=== PATIENT | female | born 1945 | race Caucasian/White ===

== ENCOUNTER 2018-12-04 15:49 | Observation (INO) | payer OTHER, SELFPAY ==
[2018-12-04] VITALS (12 sets, daily range): BP systolic 114–162; BP diastolic 63–92; PULSE 66–203; RESP 10–18; TEMP 36.2–36.8; O2SAT 97–100; BMI 23.8
--- NOTE | 2018-12-04 | DI.ECHO.S_ITS ---
[facility] +---------+ : : [address] : : : : [id number] : : : : Phone: [phone]+ Echocardiogram Report + + :Name: ERLIN RIVERA Study Date: 12/05/2018 Height: 64 in : :[facility] Exam Location: [facility] Weight: 140 lb : : Gender: Female BSA: 1.7 m2 : :: 1945 Age: 73 yrs BP: 142/78 mmHg: :Reason For Study: SVT : : Performed By: Bernardino Sanchez : :Referring: Monique GREEN E : + + Interpretation Summary The left ventricle is normal in size. Left ventricular systolic function is normal without focal wall motion abnormalities. The ejection fraction is estimated to be 60-65%. Diastolic parameters suggest a relaxation abnormality of the left ventricle, consistent with probable normal filling pressures. The right ventricle is normal in size and function. Pulmonary artery pressures cannot be estimated because of the lack of a measurable TR jet velocity. Both atria are normal in size. There is no significant valvular heart disease. The ascending aorta is mildly enlarged. Procedure: A two-dimensional transthoracic echocardiogram with color flow and Doppler was performed. The study quality was technically good. There is no prior echocardiogram noted for this patient. The patient was in normal sinus rhythm during the exam. Left Ventricle: The left ventricle is normal in size. There is normal left ventricular wall thickness. Left ventricular systolic function is normal without focal wall motion abnormalities. The ejection fraction is estimated to be 60-65%. Diastolic parameters suggest a relaxation abnormality of the left ventricle, consistent with probable normal filling pressures. Right Ventricle: The right ventricle is normal in size and function. Atria: Both atria are normal in size. The interatrial septum is intact with no evidence for an atrial septal defect. Mitral Valve: The mitral valve is normal in structure and function. There is trace mitral regurgitation. Aortic Valve: The aortic valve is trileaflet. The aortic valve opens well. No aortic regurgitation is present. Tricuspid Valve: The tricuspid valve is normal in structure and function. There is a trace or physiologic amount of tricuspid regurgitation. Pulmonary artery pressures cannot be estimated because of the lack of a measurable TR jet velocity. Pulmonic Valve: The pulmonic valve is not well seen, but is grossly normal. There is trace pulmonic regurgitation. There is no significant valvular heart disease. Great Vessels: The aortic root is normal size. The ascending aorta is mildly enlarged. The pulmonary artery is normal size. The IVC is of normal diameter and collapses greater than 50% with a sniff. This suggests a low right atrial pressure of 3 mm Hg. Pericardium/ Pleura There is no pericardial effusion. There is no pleural effusion. MMode/2D Measurements & Calculations LVIDd: 4.4 cm LVOT diam: 1.9 cm LVIDs: 2.4 cm Ao root diam: 3.1 cm FS: 44.7 % asc Aorta Diam: 3.6 cm EPSS: 0.26 cm IVSd: 0.90 cm LVPWd: 1.1 cm LV casatneda. diameter/BSA (cm/m^2): 2.6 LV sys. diameter/BSA (cm/m^2): 1.4 LA dimension: 3.6 cm RA long axis: 4.5 cm LA A2 area: 16.5 cm2 RA area: 12.9 cm2 LA A4 area: 17.4 cm2 RA vol: 31.5 ml LA length (vol): 4.7 cm RA : 18.7 ml/m2 LA vol: 51.9 ml IVC diam: 1.3 cm LA vol index: 30.9 ml/m2 Doppler Measurements & Calculations Ao V2 max: 127.1 cm/sec LVOT Max Fred: 94.7 cm/sec Ao V2 mean: 86.3 cm/sec LV V1 max P.6 mmHg Ao max P.5 mmHg LV V1 VTI: 21.9 cm Ao mean P.3 mmHg MELANIE(I,D): 2.5 cm2 Ao V2 VTI: 24.9 cm MELANIE(V,D): 2.1 cm2 sev ratio: 0.88 MELANIE indexed to BSA (cm^2/m^2): 1.5 MV E max fred: 53.8 cm/sec PA V2 max: 74.4 cm/sec MV A max fred: 64.8 cm/sec PA V2 mean: 53.3 cm/sec MV E/A: 0.83 PA mean P.2 mmHg Med Peak E' Fred: 7.2 cm/sec PA pr(Accel): 29.1 mmHg E/E' med: 7.4 Lat Peak E' Fred: 6.5 cm/sec E/E' lat: 8.3 E/e' average: 7.9 MV dec time: 0.23 sec SV(LVOT): 61.7 ml Reading Physician:02:56 PM
--- NOTE | 2018-12-04 16:01 | ED.GENADULT ---
HPI - General Adult General Chief complaint: Arrhythmia/Palpitations Stated complaint: FEEL LIKE GOING TO BLACK OUT Time Seen by Provider: 12/04/18 16:00 Source: patient and family Mode of arrival: ambulatory Limitations: no limitations History of Present Illness HPI narrative: Patient is a 73-year-old relatively healthy female here for evaluation of palpitations. Approximately 30 min prior to arrival here in the emergency department she was driving where she stated that she had a sudden head williamson and also feeling that she was going to black out. She did feel like she was having palpitations. No chest pain or shortness of breath. She states that this was a fairly sudden onset shortly before arrival here to the emergency department. She also states she has not been feeling well for the past couple days. Has not had anything like this before. No interventions for the symptoms prior to arrival. Related Data Home Medications Medication Instructions Recorded Confirmed acetaminophen 2 - 4 tab PO QDAYP PRN #0 10/10/16 diazepam [Valium] 1 tab PO Q6HP PRN #0 10/10/16 fluticasone [Flonase Allergy 1 spray INTRANASAL QDAY #0 10/10/16 Relief] gabapentin [Neurontin] 300 mg PO HS #0 10/10/16 hydrochlorothiazide 25 mg PO QDAY #0 10/10/16 12/04/18 omeprazole 20 mg PO QDAY #0 10/10/16 losartan 12/04/18 Previous Rx's Medication Instructions Recorded aspirin 81 mg PO BID #60 tab 10/18/16 ibuprofen 800 mg PO Q6HP PRN #60 tab 10/18/16 Allergies Allergy/AdvReac Type Severity Reaction Status Date / Time cefazolin [CEFAZOLIN] Allergy Intermediate HIVES Unverified 02/10/18 12:39 Review of Systems Constitutional Reports fatigue, Denies fever(s) and Denies headache(s) Eyes Denies blurry vision and Denies diplopia ENT Ears, Nose, Mouth, and Throat: Denies vertigo, Denies dizziness, Denies headache(s), Denies sinus pain and Denies sinus pressure Cardiovascular Denies chest pain, Denies syncope, Reports rapid heart rate, Reports palpitations and Reports dyspnea Respiratory Reports dyspnea and Denies wheezing Gastrointestinal Gastrointestinal: Denies abdominal pain, Reports nausea and Denies vomiting Genitourinary Denies dysuria Musculoskeletal Denies myalgias and Denies arthralgias Integumentary/Breasts Denies lesions and Denies rash Neurologic Denies vertigo, Denies dizziness, Denies syncope and Denies headache(s) Comments: Phelan like she was going to black out Psychiatric Reports anxiety Endocrine Reports fatigue, Denies flushing and Reports palpitations Hematologic/Lymphatic Comments: Not on anticoagulation Allergic/Immunologic Denies urticaria and Denies wheezing PFSH Medical History Gastroesophageal reflux disease (Acute) Hypertension (Acute) Surgical History No pertinent past surgical history (Acute) Social History marital status: lives independently: Yes Social History marital status: lives independently: Yes Exam Initial Vital Signs Initial Vital Signs: Vital Signs Temperature 97.6 F 12/04/18 16:00 Pulse Rate 203 H 12/04/18 16:00 Respiratory Rate 13 12/04/18 16:00 Blood Pressure 162/83 H 12/04/18 16:00 Pulse Oximetry 100 12/04/18 16:00 Const General: cooperative, well developed, well groomed and No acute distress Orientation: alert and awake HENMT Head: normal to inspection and normocephalic Eyes Pupils: PERRL Neck Lymphatic: No lymphadenopathy Chest Chest: normal inspection of the chest Resp Effort & Inspection: normal respiratory effort Auscultation: clear to auscultation bilaterally Cardio Rate: tachycardic Rhythm: regular rhythm Heart Sounds: no murmurs Pulses: radial pulses present GI Inspection: non-distended Palpation: No firm and No tender Skin Lesions: no lesions Rashes: no rashes Neuro General: alert and oriented x3 Cognition: normal cognition Speech: speech normal Gait: normal gait Extrem General: normal to inspection, capillary refill normal and No edema Psych Appearance: grossly normal and well kempt Course Orders Ordered: ED Orders 12/04/18 16:05 B Type Natriuretic Peptide Stat Complete Blood Count AUTO DIFF Stat Comprehensive Metabolic Panel Stat Lipase Stat Partial Thromboplastin Time Stat Prothrombin Time INR Stat Troponin I Stat 12/04/18 16:11 XR chest 1V Stat EKG-12 Lead Stat 12/04/18 16:40 Urine Microscopic Stat 12/04/18 18:30 Education, smoking cessation ONGOING 12/04/18 19:00 Troponin I Q6H 12/05/18 Complete Blood Count AUTO DIFF Routine Comprehensive Metabolic Panel Routine EKG-12 Lead Routine 12/05/18 01:00 Troponin I Q6H 12/05/18 07:00 Troponin I Q6H Acetaminophen (Tylenol) 650 mg PO Q6HR PRN PRN Reason: As Needed for Fever/Mild Pain Aspirin (Aspirin Ec) 81 mg PO DAILY [facility] Diazepam (Valium) 5 mg PO Q6H PRN PRN Reason: Anxiety Enoxaparin Sodium (Lovenox) 40 mg SUBCUT DAILY [facility] Fluticasone Propionate (Flonase) 1 spray NASAL DAILY [facility] Gabapentin (Neurontin) 300 mg PO BEDTIME [facility] Hydrochlorothiazide (Hydrochlorothiazide) 25 mg PO DAILY [facility] Ibuprofen (Advil) 800 mg PO Q6H PRN PRN Reason: Pain, Mild (1-3) Pantoprazole Sodium (Protonix) 20 mg PO 0600 [facility] Discontinued Medications Adenosine (Adenocard) 6 mg IV NOW ONE Stop: 12/04/18 16:06 Last Admin: 12/04/18 16:05 Dose: 6 mg Sodium Chloride (Normal Saline 0.9%) 1,000 mls @ 1,000 mls/hr IV BOLUS ONE Stop: 12/04/18 17:08 Last Infusion: 12/04/18 18:15 Dose: 0 mls/hr Admin: 12/04/18 16:20 Dose: 1,000 mls/hr Vital Signs - 8 hr 12/04/18 16:00 12/04/18 16:21 12/04/18 16:22 Temperature 97.6 F 98.2 F Pulse Rate 92 H 88 Respiratory Rate 18 Blood Pressure 162/83 H Blood Pressure [Right Arm] 162/83 H 156/72 H Pulse Oximetry 100 12/04/18 16:30 12/04/18 17:00 12/04/18 17:30 Temperature Pulse Rate 85 81 82 Respiratory Rate 14 10 L 13 Blood Pressure Blood Pressure [Right Arm] 150/71 H 123/68 124/63 Pulse Oximetry 100 97 100 12/04/18 18:00 12/04/18 18:38 Temperature Pulse Rate 89 85 Respiratory Rate 17 18 Blood Pressure 131/81 Blood Pressure [Right Arm] 132/78 Pulse Oximetry 100 100 Medical Decision Making Lab Data Lab results reviewed: Yes I reviewed the patient's lab results. Result diagrams: 12/04/18 16:05 12/04/18 16:05 Lab Results 12/04/18 12/04/18 12/04/18 Range/Units 16:05 16:05 16:05 WBC 5.4 (4.5-11.0) X10^3/uL RBC 4.33 (4.0-5.2) X10^6/uL Hgb 12.5 (12.0-16.0) g/dL Hct 38.1 (36-46) % MCV 88.0 (80-100) fL MCH 28.9 (26-34) PG MCHC 32.8 (30-36) % RDW 13.6 (11.6-14.8) % Plt Count 227 (150-400) X10^3/uL Neut % (Auto) 53.7 (50-75) % Lymph % (Auto) 32.8 (25-40) % [place] % (Auto) 9.8 (3-14) % Eos % (Auto) 1.8 L (2-4) % Baso % (Auto) 1.9 (0-2) % Neut # (Auto) 2900 (5768-7255) /uL Lymph # (Auto) 1800 (2284-7769) /uL [place] # (Auto) 500 (0-900) /uL Eos # (Auto) 100 (0-450) /uL Baso # (Auto) 100 (0-100) /uL PT 11.0 (10.1-12.7) SECONDS INR 1.0 (0.9-1.3) APTT 29 (26.4-36.2) SECONDS Sodium 136 L (137-145) mmol/L Potassium 3.0 L (3.4-5.1) mmol/L Chloride 98 (98-107) mmol/L Carbon Dioxide 27 (22-32) mmol/L BUN 18 H (7-17) mg/dL Creatinine 0.90 (0.52-1.04) mg/dL Estimated GFR > 60.0 (>60) mL/min BUN/Creatinine Ratio 20.0 (6-22) Glucose 130 H (80-110) mg/dL Calcium 9.3 (8.4-10.2) mg/dL Total Bilirubin 0.6 (0.2-1.3) mg/dL AST 33 (14-36) IU/L ALT 37 (9-52) IU/L Alkaline Phosphatase 73 (38-126) U/L Troponin I < 0.012 (0.01-0.034) ng/mL B-Natriuretic Peptide < 100 (<100) Total Protein 8.3 H (6.3-8.2) g/dL Albumin 4.8 (3.5-5.0) g/dL Globulin 3.5 (1.7-4.1) g/dL Albumin/Globulin Ratio 1.4 (1.0-2.8) Lipase 185 (23-300) U/L Urine RBC (0-5/HPF) Urine WBC (0-5/HPF) Ur Squamous Epith Cells Urine Bacteria (None) Ur Culture Indicated? 12/04/18 Range/Units 16:40 WBC (4.5-11.0) X10^3/uL RBC (4.0-5.2) X10^6/uL Hgb (12.0-16.0) g/dL Hct (36-46) % MCV (80-100) fL MCH (26-34) PG MCHC (30-36) % RDW (11.6-14.8) % Plt Count (150-400) X10^3/uL Neut % (Auto) (50-75) % Lymph % (Auto) (25-40) % [place] % (Auto) (3-14) % Eos % (Auto) (2-4) % Baso % (Auto) (0-2) % Neut # (Auto) (1234-0387) /uL Lymph # (Auto) (9935-2089) /uL [place] # (Auto) (0-900) /uL Eos # (Auto) (0-450) /uL Baso # (Auto) (0-100) /uL PT (10.1-12.7) SECONDS INR (0.9-1.3) APTT (26.4-36.2) SECONDS Sodium (137-145) mmol/L Potassium (3.4-5.1) mmol/L Chloride (98-107) mmol/L Carbon Dioxide (22-32) mmol/L BUN (7-17) mg/dL Creatinine (0.52-1.04) mg/dL Estimated GFR (>60) mL/min BUN/Creatinine Ratio (6-22) Glucose (80-110) mg/dL Calcium (8.4-10.2) mg/dL Total Bilirubin (0.2-1.3) mg/dL AST (14-36) IU/L ALT (9-52) IU/L Alkaline Phosphatase (38-126) U/L Troponin I (0.01-0.034) ng/mL B-Natriuretic Peptide (<100) Total Protein (6.3-8.2) g/dL Albumin (3.5-5.0) g/dL Globulin (1.7-4.1) g/dL Albumin/Globulin Ratio (1.0-2.8) Lipase (23-300) U/L Urine RBC 1-5/hpf (0-5/HPF) Urine WBC 5-10/hpf H (0-5/HPF) Ur Squamous Epith Cells 5-10 /hpf H Urine Bacteria None seen (None) Ur Culture Indicated? Cult not indicated Urine Dip Bedside Urine Glucose Negative Bedside Urine Bilirubin - Negative Bedside Urine Ketone - Negative Urine Specific [place] 1.015 Bedside Urine Occult Blood + Bedside Urine pH 6.5 Bedside Urine Protein - Negative Bedside Urine Urobilinogen - Negative Bedside Urine Nitrite - Negative Bedside Urine Leukocytes + 70 Esterase Point of care testing: Urine Dip Bedside Urine Glucose Negative Bedside Urine Bilirubin - Negative Bedside Urine Ketone - Negative Urine Specific [place] 1.015 Bedside Urine Occult Blood + Bedside Urine pH 6.5 Bedside Urine Protein - Negative Bedside Urine Urobilinogen - Negative Bedside Urine Nitrite - Negative Bedside Urine Leukocytes + 70 Esterase Imaging Data Chest x-ray: Radiologist's impression: [place] [address] XRay Report Signed Patient: Kishor Prince#: [id number] : 1945Acct:[id number] Age/Sex: 73 / FDate of Service: 12/04/18 Loc: ED Accession Number: [id number] Procedure: XR chest 1V Ordering Provider: Eugene Ballesteros D.O. PROCEDURE: XR CHEST 1V INDICATIONS: palpitations TECHNIQUE: One view of the chest was acquired. COMPARISON: None. FINDINGS: Surgical changes and devices: None. Lungs and pleura: Lungs are clear. No pleural effusions or pneumothorax. Mediastinum: Mediastinal contours appear normal. Heart size is normal. Bones and chest wall: No suspicious bony lesions. Overlying soft tissues appear unremarkable. IMPRESSION: No acute process. Dictated by: Kade Emery M.D. on 12/04/2018 at 17:02 Approved by: Kade Emery M.D. on 12/04/2018 at 17:02 ECG Data Attestation: I personally reviewed and interpreted this ECG as follows: Prior ECG tracings: not available for review Interpretation: EKG arrival Tachycardia Ventricular rate of 188 Normal QRS Normal QTC Nonspecific ST T wave changes EKG after adenosine Sinus rhythm Ventricular rate of 92 Normal axis Normal QRS Normal QTC No ST T wave changes MDM Narrative Medical decision making narrative: Patient arrived with supraventricular tachycardia with a heart rate greater than 200. Patient was not hypotensive. Was mentating without any problems. Symptoms. If started approximately 30 min prior to arrival. She was given 6 mg of adenosine which brought her heart rate down less than 100. She did report an improvement of many of her symptoms. Lab reports were unremarkable. Troponin was negative. Patient was fairly anxious about all of her symptoms which is understandable. I feel that given the new onset of this SVT that admission for continued cardiac monitoring and trending of her troponins and echocardiogram is warranted. I discussed the case with Dr. Cota who agreed to admit the patient. The patient and her agreed to admission as well. Critical Care Time Critical Care Time: Yes Total Critical Care Time: 35 Attestation: The high probability of a clinically significant, sudden or life threatening deterioration of the cardiovascular system(s) required my full and direct attention, intervention and personal management. The aggregate critical care time was 35 minutes. This time is in addition to time spent performing reported procedures but includes the following: [] Data Review and interpretation [] Patient assessment and monitoring of vital signs [] Documentation [] Medication orders and management Discharge Plan Departure Patient Disposition: Admitted As Inpatient Clinical Impression: Supraventricular tachycardia Discharge Date/Time: 12/04/18 18:50 Interventions: ED Discharge Assessment Last Done: 12/04/18 18:38 Admit Date/Time: 12/04/18 18:44 Admit Provider: Monique Cota
[2018-12-04] MEDS: ADENOSINE 6 MG/2 ML VIAL IV (16:05)
--- NOTE | 2018-12-04 16:11 | DI.RAD.S_ITS ---
PROCEDURE: XR CHEST 1V INDICATIONS: palpitations TECHNIQUE: One view of the chest was acquired. COMPARISON: None. FINDINGS: Surgical changes and devices: None. Lungs and pleura: Lungs are clear. No pleural effusions or pneumothorax. Mediastinum: Mediastinal contours appear normal. Heart size is normal. Bones and chest wall: No suspicious bony lesions. Overlying soft tissues appear unremarkable. IMPRESSION: No acute process. Dictated by: Kade Emery M.D. on 12/04/2018 at 17:02 Approved by: Kade Emery M.D. on 12/04/2018 at 17:02
[2018-12-04] MEDS: SODIUM CHLORIDE 0.9% 1,000 ML 1000 ML IV (16:20)
[2018-12-04 16:28] LABS: Add Manual Diff / Slide Review NO; Basophils Absolute Auto 100 /uL (0-100); Basophils Percent Auto 1.9 % (0-2); Eosinophils Absolute Auto 100 /uL (0-450); Eosinophils Percent Auto 1.8 % (2-4); Hematocrit 38.1 % (36-46); Hemoglobin 12.5 g/dL (12.0-16.0); Lymphocytes Absolute Auto 1800 /uL (1100-4500); Lymphocytes Percent Auto 32.8 % (25-40); Mean Corpuscular HGB Conc 32.8 % (30-36); Mean Corpuscular Hemoglobin 28.9 PG (26-34); Monocytes Absolute Auto 500 /uL (0-900); Monocytes Percent Auto 9.8 % (3-14); Neutrophils Absolute Auto 2900 /uL (1500-7000); Neutrophils Percent Auto 53.7 % (50-75); Platelet Count 227 X10^3/uL (150-400); Red Blood Cell Count 4.33 X10^6/uL (4.0-5.2); Red Cell Distribution Width 13.6 % (11.6-14.8); White Blood Cell Count 5.4 X10^3/uL (4.5-11.0)
--- NOTE | 2018-12-04 16:31 | PC.NURSE ---
adenosine 6mg IVP given for SVT, hr 213. pt converted to normal sinus rhythm. hr90's
[2018-12-04 16:38] LABS: PTT Partial Thromboplastin Tim 29 SECONDS (26.4-36.2)
[2018-12-04 16:39] LABS: Alanine Aminotransferase 37 IU/L (9-52); Albumin 4.8 g/dL (3.5-5.0); Albumin Globulin Ratio 1.4 (1.0-2.8); Alkaline Phosphatase 73 U/L (38-126); Aspartate Aminotransferase 33 IU/L (14-36); Bilirubin Total 0.6 mg/dL (0.2-1.3); Blood Urea Nitrogen 18 mg/dL (7-17); Calcium 9.3 mg/dL (8.4-10.2); Carbon Dioxide 27 mmol/L (22-32); Chloride 98 mmol/L (98-107); Estimated Glomerular Filt Rate > 60.0 mL/min (>60); Globulin 3.5 g/dL (1.7-4.1); Glucose 130 mg/dL (80-110); HEMOLYSIS < 15 (0-50); Lipase 185 U/L (23-300); Sodium 136 mmol/L (137-145); Total Protein 8.3 g/dL (6.3-8.2)
[2018-12-04 16:59] LABS: Troponin I < 0.012 ng/mL (0.01-0.034)
[2018-12-04 17:04] LABS: Bacteria Urine None Seen
[2018-12-04 17:21] LABS: Culture Indicated Urine Cult Not Indicated; RBC Urine 1-5/HPF (0-5/HPF); Squamous Epithelial Cell Urine 5-10 /HPF; WBC Urine 5-10/HPF (0-5/HPF)
[2018-12-04 17:24] LABS: B Type Natriuretic Peptide < 100 (<100)
--- NOTE | 2018-12-04 18:38 | PM.HP.1 ---
History of Present Illness Date Patient Seen: 12/04/18 Chief complaint: FEEL LIKE GOING TO BLACK OUT Narrative: Mrs. Prince is a 73 year old female with a history of recurrent sinusitis, asthma, bronchitis, arthritis, mixed connective tissue disease, GERD, HTN who had an episode of dizziness and light headedness while driving today. After trading drivers with her , she was seen in the ED and was shown to be in SVT on EKG. She was converted to sinus rhythm (HR90) after a failed attempt of valsalva maneuvers and successful 6 mg of adenosine. She notes that she has had short spells of dizziness, a few times per year, but has never felt palpatations and dizziness that lasted like this episode. She is very sensitive to oral medications and has had GI upset with zyrtex, numerous antibiotics, and narcotics. There was no hypotension during her ER evaluation. The troponin is less than 0.012. The chest x-ray is normal. She has had bronchitis since October 02 and is finally getting over it, but I am allergic to Gonzalez. She has had anxiety in the past related to laying down flat, which causes her sinusitis to become uncontrolled. She is anxious to be in hospitals, but would like to prevent future episodes. Patient History Medical History Asthma (Acute) Mixed connective tissue disease (Acute) Chronic arthritis (Acute) Chronic sinusitis (Acute) Hypertension (Acute) Gastroesophageal reflux disease (Acute) Surgical History No pertinent past surgical history (Acute) Social History marital status: household members: spouse lives independently: Yes Smoking Status: Never smoker Family & Social History Safety & Behavioral: No pertinent Family medical history to this admission Feels Safe in Current Yes Environment Been Physically Hurt or No Threatened By a Person Meds Home Medications Medication Instructions Recorded Confirmed Type acetaminophen 2 - 4 tab PO QDAYP PRN #0 10/10/16 12/04/18 History fluticasone [Flonase Allergy 1 spray INTRANASAL QDAY #0 10/10/16 12/04/18 History Relief] gabapentin [Neurontin] 300 mg PO HS #0 10/10/16 12/04/18 History hydrochlorothiazide 25 mg PO QDAY #0 10/10/16 12/04/18 History omeprazole 20 mg PO BID #0 10/10/16 12/04/18 History albuterol sulfate [ProAir HFA] 1 puff INHALATION Q4-6H PRN 12/04/18 12/04/18 History azelastine 2 spray INTRANASAL BID 12/04/18 12/04/18 History diclofenac sodium 2 g TOPICAL QID 12/04/18 12/04/18 History losartan 50 mg PO BEDTIME 12/04/18 12/04/18 History mecobalamin (vitamin B12) 500 mcg SUBLINGUAL DAILY 12/04/18 12/04/18 History Allergies Allergy/AdvReac Type Severity Reaction Status Date / Time cefazolin [CEFAZOLIN] Allergy Intermediate HIVES Unverified 02/10/18 12:39 Review of Systems Review of Systems Mrs. Prince states that she is generally healthy other than the chronic sinusitis, diffuse arthritis, mixed connective tissue dz, GERD, and HTN. Constitutional: She denies changes in weight, fever, chills, or muscle pain HENMT: sinus congestion after laying flat in the ED, post nasal drip associated cough, no lymph nodes, trouble swallowing, or changes in her voice Eyes: no changes in vision Heart: dizziness, palpatations, light headedness. No chest pain, shortness of breath. Resp: Admits to difficulty breathing through her nose due to congestion, Denies SOB, wheezing, trouble breathing. Extremities: Admits to arthritis with laying down for long periods of time. Denies edema. Endocrine: Denies intollerance to heat and cold. No changes in weight Neuro: Dizziness and light headedness, denies blurry vision, FROST Skin: denies rashes and bruises Hematologic: denies easy bleeding and lymphadenopathy. GI: Denies abdominal pain, diarrhea, constipation. Exam Vital Signs (past 8 hours): - 12/04/18 16:00 12/04/18 16:21 12/04/18 16:22 Temperature 97.6 F 98.2 F Pulse Rate 92 H 88 Respiratory Rate 18 Blood Pressure 162/83 H Blood Pressure [Right Arm] 162/83 H 156/72 H Pulse Oximetry 100 12/04/18 16:30 12/04/18 17:00 12/04/18 17:30 Temperature Pulse Rate 85 81 82 Respiratory Rate 14 10 L 13 Blood Pressure Blood Pressure [Right Arm] 150/71 H 123/68 124/63 Pulse Oximetry 100 97 100 12/04/18 18:00 Temperature Pulse Rate 89 Respiratory Rate 17 Blood Pressure Blood Pressure [Right Arm] 132/78 Pulse Oximetry 100 Oxygen Delivery Method Room Air Narrative Exam Narrative: She is laying in bed upright and speaks with a congested sounding voice. She is comfortable and cooperative. HENMT: Sinus congestion with Turbinate enlargement bilaterally. Patent nasal passage way. EYes: no sleral icteris, PERRL, EOMI, throat looks normal Neck: no lymphadenopathy, thyroid is midline and nonenlarged, JVD less than 6 cm, no carotid bruits heard cardio: RRR, normal S1, S2 without rubs, murmurs, clicks, or gallops resp: CTA B/L without wheezes, rales rhonchi, rubs extremities: no edema GI: Non distended, non tender, without hepatosplenomegaly Skin: no bruises or lesions noted Neuro exam. Cranial nerves 2-12 tested intact. Motor function 5/5 throughout. No increased reflexes. Gait and balance are not tested. Objective Labs Result Diagrams: 12/04/18 16:05 12/04/18 16:05 Labs: Laboratory Results - last 24 hr 12/04/18 12/04/18 12/04/18 16:05 16:05 16:05 WBC 5.4 RBC 4.33 Hgb 12.5 Hct 38.1 MCV 88.0 MCH 28.9 MCHC 32.8 RDW 13.6 Plt Count 227 Neut % (Auto) 53.7 Lymph % (Auto) 32.8 [place] % (Auto) 9.8 Eos % (Auto) 1.8 L Baso % (Auto) 1.9 Neut # (Auto) 2900 Lymph # (Auto) 1800 [place] # (Auto) 500 Eos # (Auto) 100 Baso # (Auto) 100 PT 11.0 INR 1.0 APTT 29 Sodium 136 L Potassium 3.0 L Chloride 98 Carbon Dioxide 27 BUN 18 H Creatinine 0.90 Estimated GFR > 60.0 BUN/Creatinine Ratio 20.0 Glucose 130 H Calcium 9.3 Total Bilirubin 0.6 AST 33 ALT 37 Alkaline Phosphatase 73 Troponin I < 0.012 B-Natriuretic Peptide < 100 Total Protein 8.3 H Albumin 4.8 Globulin 3.5 Albumin/Globulin Ratio 1.4 Lipase 185 Urine RBC Urine WBC Ur Squamous Epith Cells Urine Bacteria Ur Culture Indicated? 12/04/18 16:40 WBC RBC Hgb Hct MCV MCH MCHC RDW Plt Count Neut % (Auto) Lymph % (Auto) [place] % (Auto) Eos % (Auto) Baso % (Auto) Neut # (Auto) Lymph # (Auto) [place] # (Auto) Eos # (Auto) Baso # (Auto) PT INR APTT Sodium Potassium Chloride Carbon Dioxide BUN Creatinine Estimated GFR BUN/Creatinine Ratio Glucose Calcium Total Bilirubin AST ALT Alkaline Phosphatase Troponin I B-Natriuretic Peptide Total Protein Albumin Globulin Albumin/Globulin Ratio Lipase Urine RBC 1-5/hpf Urine WBC 5-10/hpf H Ur Squamous Epith Cells 5-10 /hpf H Urine Bacteria None seen Ur Culture Indicated? Cult not indicated Assessment & Plan Plan: Assessment/Plan Narrative: 1) SVT, POA, Acute, Stable - Confirmed on EKG in the ED and responded to Adenosine. - Trend troponins x3 - Echocardiogram ordered, pending results - Treadmill ordered, expected Thursday 2) Chronic Sinusitis POA, Chronic, active - continue home medications - Flonase - consider Afrin or a nasal decongestant for transient relief during future testing 3) Arthritis, POA, Chronic, Active - continue home Tylenol 4) Asthma, POA, Chronic, Stable - continue PRN Pro-Air home medication 5)Mixed Connective Tissue Disease, POA, Chronic, Stable - no treatment needed at this time, will follow up with her sales trainee after discharge 6)GERD, POA, Chronic, Stable - continue home Omeprazole to prevent GERD sx 7) HTN, POA, Chronic Stable - continue home medications losartan and hydrochlorothiazide.
[2018-12-04 20:02] LABS: Troponin I < 0.012 ng/mL (0.01-0.034)
[2018-12-04 20:20] LABS: Thyroid Stimulating Hormone 0.81 uIU/mL (0.47-4.68)
[2018-12-04] MEDS: GABAPENTIN 300 MG CAPSULE PO (20:24)
[2018-12-04] MEDS: ACETAMINOPHEN 325 MG TABLET 650 MG PO (21:33)
[2018-12-05] VITALS (12 sets, daily range): BP systolic 117–150; BP diastolic 74–78; PULSE 69–84; RESP 16–18; TEMP 36.3–36.7; O2SAT 91–99
[2018-12-05 01:27] LABS: Troponin I 0.018 ng/mL (0.01-0.034)
[2018-12-05] MEDS: ALBUTEROL HFA 60 PUFF/8 GM INH INH (02:00)
[2018-12-05] MEDS: POTASSIUM CHLORIDE 20 MEQ/15 ML UDC 40 MEQ PO ×2 (04:01)
[2018-12-05] MEDS: PANTOPRAZOLE 20 MG TABLET PO (06:33)
[2018-12-05 07:38] LABS: Add Manual Diff / Slide Review NO; Basophils Absolute Auto 0 /uL (0-100); Basophils Percent Auto 0.7 % (0-2); Eosinophils Absolute Auto 100 /uL (0-450); Hematocrit 32.3 % (36-46); Hemoglobin 10.6 g/dL (12.0-16.0); Lymphocytes Absolute Auto 1500 /uL (1100-4500); Lymphocytes Percent Auto 41.6 % (25-40); Mean Corpuscular HGB Conc 32.9 % (30-36); Mean Corpuscular Volume 88.4 fL (80-100); Monocytes Absolute Auto 400 /uL (0-900); Monocytes Percent Auto 10.1 % (3-14); Neutrophils Absolute Auto 1600 /uL (1500-7000); Neutrophils Percent Auto 44.6 % (50-75); Platelet Count 182 X10^3/uL (150-400); Red Blood Cell Count 3.65 X10^6/uL (4.0-5.2); Red Cell Distribution Width 13.9 % (11.6-14.8); White Blood Cell Count 3.7 X10^3/uL (4.5-11.0)
[2018-12-05 07:49] LABS: Alanine Aminotransferase 31 IU/L (9-52); Albumin 3.8 g/dL (3.5-5.0); Albumin Globulin Ratio 1.4 (1.0-2.8); Alkaline Phosphatase 57 U/L (38-126); Aspartate Aminotransferase 24 IU/L (14-36); BUN Creatinine Ratio 16.3 (6-22); Bilirubin Total 0.4 mg/dL (0.2-1.3); Blood Urea Nitrogen 13 mg/dL (7-17); Calcium 8.8 mg/dL (8.4-10.2); Carbon Dioxide 26 mmol/L (22-32); Chloride 105 mmol/L (98-107); Estimated Glomerular Filt Rate > 60.0 mL/min (>60); Globulin 2.7 g/dL (1.7-4.1); Glucose 95 mg/dL (80-110); HEMOLYSIS < 15 (0-50); Potassium 4.1 mmol/L (3.4-5.1); Sodium 139 mmol/L (137-145); Total Protein 6.5 g/dL (6.3-8.2)
[2018-12-05 08:00] LABS: Troponin I 0.012 ng/mL (0.01-0.034)
--- NOTE | 2018-12-05 08:50 | CM.DANOTE ---
DCP: Case received, EMR reviewed and met with patient. Introduced self and role. DCP template competed with information currently available. Patient is a 73 year old female who admitted yesterday afternoon to the care of the hospitalist team. PCP: PILI Arango, at [facility]. Payer: confirmed: [facility] [employer]. Patient came to hospital via family vehicle due to dizziness and heart palpitations. [place] she became [place]zy. Was able to pullboat engineer and have drive. He then drove her to hospital. Patient was noted to be in SVT. Met with her briefly. pleasant. Stated that her doctor had recommended that she see berry planter due to her EKG, but had not had time with other things going on. She had knee replacement here a couple of years ago. She stated, she also has autoimmune disease. She is independent at home. She is expecting to have an echo today. P: Home when medically stable. She will also be following up with berry planter. Catia Graham RN/Electrician Outside
[2018-12-05] MEDS: ENOXAPARIN 40 MG/0.4 ML SYRINGE SUBCUT (10:01)
[2018-12-05] MEDS: FLUTICASONE 120 SPRAY/16 GM SPRAY.SUSP NASAL (10:01)
[2018-12-05] MEDS: ASPIRIN EC 81 MG TABLET PO (10:02)
[2018-12-05] MEDS: hydroCHLOROthiazide 25 MG TABLET PO (10:02)
[2018-12-05] MEDS: SODIUM CHLORIDE 0.9% FLUSH 10 ML IV ×2 (10:02→20:17)
[2018-12-05] MEDS: ACETAMINOPHEN 325 MG TABLET 650 MG PO ×2 (11:22→21:45)
--- NOTE | 2018-12-05 16:04 | PC.NURSE ---
Addendum entered by Conchis Campos R.N. 12/05/18 22:28: Pt given night time meds around pts regular bedtime. pt cooperative. discussed NPO status with pt after midnight. PT states if she doesn't eat she does have a tendency to throw up. told pt to let staff know if she was feeling nauseated. PT verbalized understanding. will continue to monitor. Original Note: 1500- assumed care of pt. Pt bored and antsy as she states she usually is cleaning or fixing something for dinner or doing something at home to where she doesn't have anything to do here so she is just bored. Pt ambulates steady gait in room. Pt uses call light. waits for assistance. updated on plan of care and plans for the evening and into tomorrow for testing. Pt states she is bummed she cant be home. but at least theres a tv to watch. Pt pleasant and cooperative and appreciates staff. will continue to monitor.
[2018-12-05] MEDS: GABAPENTIN 300 MG CAPSULE PO (21:45)
--- NOTE | 2018-12-05 21:49 | PM.PN.1 ---
Subjective Date Patient Seen: 12/05/18 Interval history: Melvina Prince is a 73-year-old female with a past medical history significant for recurrent sinusitis, asthma, bronchitis, arthritis, mixed connective tissue disease, GERD, and hypertension who presented for acute episode of dizziness and lightheadedness while driving and found to be in SVT which was abated with adenosine. Overnight: Patient was stable and had no ectopy on telemetry. Patient is resting in bed comfortably. She denies any palpitations, lightheadedness or dizziness. She denies chest pain, shortness of breath, abdominal pain, nausea, vomiting, fever, chills, dysuria, diarrhea constipation. She is eager to go home. She reports restlessness and inability to sit still at baseline. She is voiding without difficulty. She is ambulating without assistance. Exam Vital Signs (past 8 hours): - 12/05/18 15:36 12/05/18 15:50 12/05/18 19:27 Temperature 98.1 F 97.9 F Pulse Rate 83 78 Respiratory Rate 16 18 Blood Pressure 128/74 119/76 Pulse Oximetry 96 96 98 12/05/18 20:14 Temperature Pulse Rate Respiratory Rate Blood Pressure 117/75 Pulse Oximetry Oxygen Delivery Method Room Air Narrative Exam Narrative: General: Older female sitting in bed and in no acute distress, well-developed, well-nourished, appropriately interactive. HEENT: Normocephalic, atraumatic. External ears without defect. Pupils equal, round, and reactive to light. Anicteric sclerae, moist conjunctivae, and no lid lag. Neck: Supple with full range of motion. No jugular venous distension. No bruits. No lymphadenopathy or thyromegaly. Cardiovascular: Regular rate and rhythm without murmurs, rubs, or gallops appreciated. Pulmonary: Clear to auscultation bilaterally without crackles, wheezes, or rhonchi. Normal respiratory effort with no use of accessory muscles. Abdomen: Soft, bowel sounds present, nontender, nondistended. No hepatosplenomegaly or masses appreciated. Extremities: No clubbing, cyanosis, or edema. Skin: Normal temperature, turgor, and texture; no rash, ulcers, or subcutaneous nodules appreciated. Neurological: Cranial nerves grossly intact. Normal muscle strength, tone, and bulk. Reflexes, coordination, and sensory function within normal limits. No known gait impairment. Psychiatric: Normal mood and affect. Alert and oriented to person, place, and time. Objective Labs Result Diagrams: 12/05/18 07:20 12/05/18 07:20 Labs: Laboratory Results - last 24 hr 12/05/18 12/05/18 12/05/18 00:59 07:20 07:20 WBC 3.7 L RBC 3.65 L Hgb 10.6 L Hct 32.3 L MCV 88.4 MCH 29.0 MCHC 32.9 RDW 13.9 Plt Count 182 Neut % (Auto) 44.6 L Lymph % (Auto) 41.6 H Branch % (Auto) 10.1 Eos % (Auto) 3.0 Baso % (Auto) 0.7 Neut # (Auto) 1600 Lymph # (Auto) 1500 Branch # (Auto) 400 Eos # (Auto) 100 Baso # (Auto) 0 Sodium Potassium Chloride Carbon Dioxide BUN Creatinine Estimated GFR BUN/Creatinine Ratio Glucose Calcium Total Bilirubin AST ALT Alkaline Phosphatase Troponin I 0.018 0.012 Total Protein Albumin Globulin Albumin/Globulin Ratio 12/05/18 07:20 WBC RBC Hgb Hct MCV MCH MCHC RDW Plt Count Neut % (Auto) Lymph % (Auto) Branch % (Auto) Eos % (Auto) Baso % (Auto) Neut # (Auto) Lymph # (Auto) Branch # (Auto) Eos # (Auto) Baso # (Auto) Sodium 139 Potassium 4.1 Chloride 105 Carbon Dioxide 26 BUN 13 Creatinine 0.80 Estimated GFR > 60.0 BUN/Creatinine Ratio 16.3 Glucose 95 Calcium 8.8 Total Bilirubin 0.4 AST 24 ALT 31 Alkaline Phosphatase 57 Troponin I Total Protein 6.5 Albumin 3.8 Globulin 2.7 Albumin/Globulin Ratio 1.4 Assessment & Plan Plan: Assessment/Plan Narrative: Melvina Prince is a 73-year-old female with a past medical history significant for recurrent sinusitis, asthma, bronchitis, arthritis, mixed connective tissue disease, GERD, and hypertension who presented for acute episode of dizziness and lightheadedness while driving and found to be in SVT which was abated with adenosine. 1. Acute SVT, present on admission. Resolved. -Confirmed on EKG in the ED and responded to Adenosine. -Trended serial troponins x3 which were within normal limits. -Echocardiogram ordered, pending. -Ordered exercise treadmill stress test for tomorrow morning. 2. Chronic Sinusitis , chronic, present on admission. Stable. -Continue home medications - Flonase. -Consider nasal decongestant for transient relief during future testing. 3. Arthritis, chronic, present on admission. Stable. -Continue home Tylenol. 4. Asthma, chronic, present on admission. Stable. -Continue PRN Pro-Air home medication 5. Mixed connective tissue disease, chronic, present on admission. Stable. -No treatment needed at this time, will follow up with her pattern generator operator after discharge. 6. GERD, chronic, present on admission. Stable. -Continue home Omeprazole. 7. Hypertension, chronic, present on admission. Stable. -Continue home medications losartan and hydrochlorothiazide. Disposition: Patient will likely discharge home tomorrow after stress test presuming normal with no evidence of ischemia.
[2018-12-05] MEDS: LOSARTAN 50 MG TABLET PO (23:40)
--- NOTE | 2018-12-05 23:51 | PC.NURSE ---
Addendum entered by Mary Fam R.N. 12/06/18 06:00: Slept at intervals. No pain at present time but concerned that she be allowed to take Tylenol prior to stress test; will clarify with MD since patient is NPO. BP still elevated at 151/73. Telemetry still SR. Original Note: Patient is alert and oriented. Breath sounds CTA with RA sat of 97%. HRR; on telemetry and has been in SR. Denies nausea. BT present and abdomen is soft. Denies dysuria, frequency or urgency. Independent with mobility and is steady on feet. Wearing bilateral SALUD stockings. BP elevated at 150/78 so requests Losartan which she had refused earlier due to a lower BP. Denies pain. Fall risk score is moderate but patient calls for assistance appropriately and is steady on feet; reminded to call for assistance if experiencing any pain, dizziness, weakness or disorientation.
[2018-12-06 05:20] VITALS: BP 151/73; PULSE 78; RESP 18; TEMP 36.5; O2SAT 98
[2018-12-06 05:55] LABS: Add Manual Diff / Slide Review NO; Basophils Absolute Auto 0 /uL (0-100); Basophils Percent Auto 0.9 % (0-2); Eosinophils Absolute Auto 200 /uL (0-450); Eosinophils Percent Auto 4.5 % (2-4); Hematocrit 33.9 % (36-46); Hemoglobin 11.3 g/dL (12.0-16.0); Lymphocytes Absolute Auto 1500 /uL (1100-4500); Lymphocytes Percent Auto 42.9 % (25-40); Mean Corpuscular HGB Conc 33.3 % (30-36); Mean Corpuscular Hemoglobin 29.3 PG (26-34); Mean Corpuscular Volume 88.1 fL (80-100); Monocytes Absolute Auto 400 /uL (0-900); Monocytes Percent Auto 10.6 % (3-14); Neutrophils Absolute Auto 1500 /uL (1500-7000); Neutrophils Percent Auto 41.1 % (50-75); Platelet Count 191 X10^3/uL (150-400); Red Blood Cell Count 3.84 X10^6/uL (4.0-5.2); Red Cell Distribution Width 13.9 % (11.6-14.8); White Blood Cell Count 3.6 X10^3/uL (4.5-11.0)
[2018-12-06] MEDS: PANTOPRAZOLE 20 MG TABLET PO (05:57)
[2018-12-06 06:00] LABS: BUN Creatinine Ratio 16.7 (6-22); Blood Urea Nitrogen 15 mg/dL (7-17); Calcium 9.2 mg/dL (8.4-10.2); Carbon Dioxide 30 mmol/L (22-32); Chloride 100 mmol/L (98-107); Estimated Glomerular Filt Rate > 60.0 mL/min (>60); Glucose 96 mg/dL (80-110); HEMOLYSIS < 15 (0-50); Magnesium 1.6 mg/dL (1.6-2.3); Potassium 3.7 mmol/L (3.4-5.1); Sodium 137 mmol/L (137-145)
--- NOTE | 2018-12-06 06:55 | PM.DS.1 ---
History of Present Illness Date Patient Seen: 12/04/18 Chief complaint: FEEL LIKE GOING TO BLACK OUT Narrative: Written by Dr. Cota: Mrs. Prince is a 73 year old female with a history of recurrent sinusitis, asthma, bronchitis, arthritis, mixed connective tissue disease, GERD, HTN who had an episode of dizziness and light headedness while driving today. After trading drivers with her , she was seen in the ED and was shown to be in SVT on EKG. She was converted to sinus rhythm (HR90) after a failed attempt of valsalva maneuvers and successful 6 mg of adenosine. She notes that she has had short spells of dizziness, a few times per year, but has never felt palpatations and dizziness that lasted like this episode. She is very sensitive to oral medications and has had GI upset with zyrtex, numerous antibiotics, and narcotics. There was no hypotension during her ER evaluation. The troponin is less than 0.012. The chest x-ray is normal. She has had bronchitis since October 02 and is finally getting over it, but I am allergic to Gonzalez. She has had anxiety in the past related to laying down flat, which causes her sinusitis to become uncontrolled. She is anxious to be in hospitals, but would like to prevent future episodes. Discharge Providers Date of admission: 12/04/18 18:44 Primary care physician: Rogelio Costello MD Discharge provider: Perla Bañuelos DO Discharge Date: 12/06/18 Summary Discharge Diagnosis: 1. Acute SVT, present on admission. Resolved. 2. Chronic sinusitis, present on admission. Stable. 3. Arthritis, chronic, present on admission. Stable. 4. Asthma, chronic, present on admission. Stable. 5. Mixed connective tissue disease, chronic, present on admission. Stable. 6. GERD, chronic, present on admission. Stable. 7. Hypertension, chronic, present on admission. Stable. Hospital Course: Melvina Prince is a 73-year-old female with a past medical history significant for recurrent sinusitis, asthma, bronchitis, arthritis, mixed connective tissue disease, GERD, and hypertension who presented for acute episode of dizziness and lightheadedness while driving and found to be in SVT which was abated with adenosine. 1. Acute SVT, present on admission. Resolved. -Confirmed on EKG in the ED and responded to Adenosine. -Trended serial troponins x3 which were within normal limits. -Echocardiogram demonstrated preserved systolic function with ejection fraction 60-65%, normal RV function, both atria are normal in size. No significant valvular heart disease. The ascending aorta is mildly enlarged. -Nuclear medicine stress test was normal and did not demonstrate any perfusion defect. Recommend cardiology referral outpatient for further workup and management of arrhythmia. -Started on metoprolol tartrate 25 mg twice daily for prevention of further arrhythmia as and increased blood pressure control, per Cardiology. Follow up closely with primary care physician. 2. Chronic sinusitis, present on admission. Stable. -Continued home medications - Flonase. -Consider nasal decongestant. 3. Arthritis, chronic, present on admission. Stable. -Continued home Tylenol. 4. Asthma, chronic, present on admission. Stable. -Continued albuterol inhaler as needed. 5. Mixed connective tissue disease, chronic, present on admission. Stable. -No treatment needed at this time, will follow up with her biological sciences instructor after discharge. 6. GERD, chronic, present on admission. Stable. -Continued home Omeprazole. 7. Hypertension, chronic, present on admission. Stable. -Continued home medications losartan and hydrochlorothiazide. Add beta-naresh as above. Status at Discharge Functional status at discharge: independent ambulation Overall status at discharge: patient is back to baseline Exam Vital Signs (past 8 hours): - 12/05/18 23:30 12/05/18 23:40 12/06/18 05:20 Temperature 97.8 F 97.7 F Pulse Rate 84 84 78 Respiratory Rate 18 18 Blood Pressure 150/78 H 150/78 H 151/73 H Pulse Oximetry 97 98 Oxygen Delivery Method Room Air Narrative Exam Narrative: General: Older female sitting in bed and in no acute distress, well-developed, well-nourished, appropriately interactive. HEENT: Normocephalic, atraumatic. External ears without defect. Pupils equal, round, and reactive to light. Anicteric sclerae, moist conjunctivae, and no lid lag. Neck: Supple with full range of motion. No jugular venous distension. No bruits. No lymphadenopathy or thyromegaly. Cardiovascular: Regular rate and rhythm without murmurs, rubs, or gallops appreciated. Pulmonary: Clear to auscultation bilaterally without crackles, wheezes, or rhonchi. Normal respiratory effort with no use of accessory muscles. Abdomen: Soft, bowel sounds present, nontender, nondistended. No hepatosplenomegaly or masses appreciated. Extremities: No clubbing, cyanosis, or edema. Skin: Normal temperature, turgor, and texture; no rash, ulcers, or subcutaneous nodules appreciated. Neurological: Cranial nerves grossly intact. Normal muscle strength, tone, and bulk. Reflexes, coordination, and sensory function within normal limits. No known gait impairment. Psychiatric: Normal mood and affect. Alert and oriented to person, place, and time. Objective Labs Result Diagrams: 12/06/18 05:06 12/06/18 05:06 Labs: Laboratory Results - last 24 hr 12/05/18 12/05/18 12/05/18 07:20 07:20 07:20 WBC 3.7 L RBC 3.65 L Hgb 10.6 L Hct 32.3 L MCV 88.4 MCH 29.0 MCHC 32.9 RDW 13.9 Plt Count 182 Neut % (Auto) 44.6 L Lymph % (Auto) 41.6 H [place] % (Auto) 10.1 Eos % (Auto) 3.0 Baso % (Auto) 0.7 Neut # (Auto) 1600 Lymph # (Auto) 1500 [place] # (Auto) 400 Eos # (Auto) 100 Baso # (Auto) 0 Sodium 139 Potassium 4.1 Chloride 105 Carbon Dioxide 26 BUN 13 Creatinine 0.80 Estimated GFR > 60.0 BUN/Creatinine Ratio 16.3 Glucose 95 Calcium 8.8 Magnesium Total Bilirubin 0.4 AST 24 ALT 31 Alkaline Phosphatase 57 Troponin I 0.012 Total Protein 6.5 Albumin 3.8 Globulin 2.7 Albumin/Globulin Ratio 1.4 12/06/18 12/06/18 05:06 05:06 WBC 3.6 L RBC 3.84 L Hgb 11.3 L Hct 33.9 L MCV 88.1 MCH 29.3 MCHC 33.3 RDW 13.9 Plt Count 191 Neut % (Auto) 41.1 L Lymph % (Auto) 42.9 H [place] % (Auto) 10.6 Eos % (Auto) 4.5 H Baso % (Auto) 0.9 Neut # (Auto) 1500 Lymph # (Auto) 1500 [place] # (Auto) 400 Eos # (Auto) 200 Baso # (Auto) 0 Sodium 137 Potassium 3.7 Chloride 100 Carbon Dioxide 30 BUN 15 Creatinine 0.90 Estimated GFR > 60.0 BUN/Creatinine Ratio 16.7 Glucose 96 Calcium 9.2 Magnesium 1.6 Total Bilirubin AST ALT Alkaline Phosphatase Troponin I Total Protein Albumin Globulin Albumin/Globulin Ratio Discharge Plan Discharge Plan Patient Disposition: Home Discharge comment: You are being discharged home. Please follow-up with your primary care provider, SHAHEEN Arango, within the next 1 week regarding your hospitalization and to be referred to Cardiology for further workup of your arrhythmia. Your stress test was normal and did not show any signs of heart attack or impending heart attack. You were prescribed metoprolol tartrate 25 mg twice daily to help treat arrhythmias and high blood pressure. If you began feeling lightheaded or dizzy stop this medication. If you have return of symptoms that are similar to when you had the arrhythmia please call 911 immediately. Discharge Med Rec/Prescriptions Prescriptions: New metoprolol tartrate 25 mg Tablet 25 mg PO BID Qty: 60 RF: 0 Continue omeprazole 20 MG capsule,delayed release(DR/EC) 20 mg PO BID Qty: 0 RF: 0 gabapentin [Neurontin] 300 MG capsule 300 mg PO HS Qty: 0 RF: 0 hydrochlorothiazide 25 MG tablet 25 mg PO QDAY Qty: 0 RF: 0 acetaminophen 500 MG tablet 2 - 4 tab PO QDAYP PRN (Reason: pain) Qty: 0 RF: 0 fluticasone [Flonase Allergy Relief] 9.9 ML spray,suspension 1 spray Intranasal QDAY Qty: 0 RF: 0 losartan 50 mg tablet 50 mg PO BEDTIME RF: 0 albuterol sulfate [ProAir HFA] 90 mcg/actuation Hfa Aerosol Inhaler 1 puff INHALATION Q4-6H PRN (Reason: wheezing) RF: 0 diclofenac sodium 1 % Gel 2 g TOPICAL QID RF: 0 azelastine 0.15 % (205.5 mcg) [place],Non-Aerosol 2 spray INTRANASAL BID RF: 0 mecobalamin (vitamin B12) 1,000 mcg Tablet,Disintegrating 500 mcg SUBLINGUAL DAILY RF: 0 Follow up/Referrals: Rogelio Costello MD [Primary Care Provider] - Provider Discharge Instructions Diet: Low-fat, Low-sodium and Low-cholesterol Activity: Activity as tolerated. Visit Report/Discharge Packet Instructions: The Mediterranean Diet and Good Health, How stressed are you?, Understanding and Managing the Stress Response, Radiofrequency Ablation, Echocardiogram, Cardiac Stress Test, Paroxysmal Supraventricular Tachycardia, DI for Cardiac Stress Test, Metoprolol, Losartan, How to Monitor Your Blood Pressure at Home Visit Report Forms: Stroke Signs & Symptoms Discharge Data Primary Care Provider: Rogelio Costello Attending Provider: Monique Cota Admit Date/Time: 12/04/18 18:44
[2018-12-06 07:00] VITALS: O2SAT 96
[2018-12-06 07:31] LABS: Cholesterol 194 mg/dL (140-199); HDL Cholesterol 47 mg/dL (40-60); LDL Cholesterol Calculated 120 mg/dL (<100); Triglycerides 136 mg/dL (35-150)
[2018-12-06 07:33] LABS: Hemoglobin A1C% w Est Avg Glu 5.9 % (4.0-6.0)
[2018-12-06] MEDS: SODIUM CHLORIDE 0.9% FLUSH 10 ML IV (08:07)
[2018-12-06 08:22] VITALS: BP 146/78; PULSE 87; RESP 18; TEMP 36.4; O2SAT 98
--- NOTE | 2018-12-06 09:08 | PC.NURSE ---
Addendum entered by Suma Goodrich R.N. 12/06/18 12:45: 1120-Pt given nuc. med injection at bedside. Taken to DI 1140 via w/c. Returned via w/c, reports able to complete test, with deep breathing and talking with RN throughout test. Snack provided, NPO until treadmill test Original Note: Addendum entered by Suma Goodrich R.N. 12/06/18 10:39: Call into Leah in DI, recommend update from Toya VIVEROS in nuc med. PO Valuim ok to give, will try 2.5mg instead of 5mg. Given. Original Note: AM shift Pt is A/o x3, light breakfast ok per DI RN, stress testing to be done this afternoon. No CP, Tele in place NSR. Dr Bañuelos in to see Pt, updated on POC and lab values. Plan to stress test today and d/c if stable.
[2018-12-06] MEDS: ENOXAPARIN 40 MG/0.4 ML SYRINGE SUBCUT (09:26)
[2018-12-06] MEDS: ASPIRIN EC 81 MG TABLET PO (09:26)
[2018-12-06] MEDS: FLUTICASONE 120 SPRAY/16 GM SPRAY.SUSP NASAL (09:26)
[2018-12-06] MEDS: diazePAM 5 MG TABLET PO (10:31)
[2018-12-06 12:29] VITALS: BP 144/70; PULSE 81; RESP 18; TEMP 36.3; O2SAT 99
[2018-12-06] MEDS: hydroCHLOROthiazide 25 MG TABLET PO (13:34)
[2018-12-06] MEDS: ACETAMINOPHEN 325 MG TABLET 650 MG PO (13:34)
--- NOTE | 2018-12-06 14:53 | PM.TREADMILL ---
Cardiac Stress Test Report Referral & Results Date Patient Seen: 12/06/18 Time Patient Seen: 14:27 Requesting provider: Monique Cota Indication: SVT Rest ECG: Unremarkable Procedure Note: Today following both written and verbal informed consent the patient was exercised according to a standard [place] protocol patient went for a total of 3 min 26 sec achieving a maximum heart rate of 133 maximum systolic blood pressure of 200. This is approximately 4.6 METS. Exercise was terminated at this point because of targets were met, and patient was unable to continue any faster. Patient was also given Cardiolite through a previously started Hep-Lock IV by the nuclear plant construction worker approximately 1 minute prior to the cessation of exercise. There are no ST segment changes identified Normal heart rate and blood pressure response to exercise Functional aerobic impairment rated 10% on the sedentary scale Occasional PVCs identified Impression: No evidence of ischemia based on ECG criteria Occasional PAC Perfusion imaging will be reported separately Please note: Actual ECG tracings can be found in the PACS system.
[2018-12-06 15:40] VITALS: BP 127/88; PULSE 75; RESP 17; TEMP 36.6; O2SAT 100
[2018-12-06] MEDS: METOPROLOL IR 25 MG TABLET 12.5 MG PO (16:29)
[2018-12-06] MEDS: METOPROLOL IR 25 MG TABLET PO (16:45)
--- NOTE | 2018-12-06 17:02 | PC.NURSE ---
Addendum entered by Conchis Campos R.N. 12/06/18 17:56: 1750- pt wheeled down with assembly person to emergency. d/c to private vehicle. Original Note: 1500- assumed care of pt from outgoing shift. pt has pending discharge. will continue to monitor.
--- NOTE | 2018-12-06 17:23 | DI.NM.S_ITS ---
DATE OF SERVICE: 12/06/2018 PROCEDURE: Exercise perfusion study. INDICATIONS: SVT with underlying hypertension, dizziness. RADIOPHARMACEUTICAL: 26.1 mCi technetium-99m Myoview IV was injected at stress and 13.0 mCi technetium-99m Myoview IV was injected at rest. CARDIAC STRESS: Patient underwent exercise perfusion study under the supervision of an attending staff. She walked on [place] protocol for 3 minutes 26 seconds, achieved 91% of target heart rate. There was hypertensive blood pressure response. Resting blood pressure 130/88. Peak blood pressure 200/100. Patient achieved 4.6 METs of workload and functional aerobic impairment +10%. No chest pain. Test was discontinued due to target met. Baseline EKG revealed sinus rhythm. During stress, there was no significant inducible ischemic change. There were no significant sustained arrhythmias seen. RAW DATA: Breast shadow was seen. GATED STUDY: Stress LV ejection fraction 88% without any obvious wall motion abnormalities. Resting end-diastolic volume is 42 mL. No transient ischemic dilatation. TID ratio is 1.07. Lung/heart ratio is 0.33, which is within normal limits. MYOCARDIAL PERFUSION SCAN: Stress supine and resting supine images were compared to each other. This study doesn't have any prone images. Stress supine and resting supine images revealed normal myocardial perfusion. No convincing ischemia infarction pattern. CONCLUSION: I will call this study a normal myocardial perfusion study. Breast shadow was seen as well. No obvious ischemic changes or significant arrhythmias during exercise. Functional aerobic impairment +10%. Overall, this is a low- risk myocardial perfusion scan. Melvina Prince - PATENT PARALEGAL/sadia/ab doc#: [id number]/job#: [id number] dd: 12/06/2018 16:27:00 dt: 12/06/2018 17:13:00 DICTATING /COPIES TO: Leatha Portillo MD COPIES MNE: ZAIRA
== END 2018-12-06 17:50 | disposition home or self-care (01) ==
LOC: ED 17:52 → AC 12-05 09:24
PROVIDERS: Internal Medicine; Admitting Provider Family Medicine; Emergency Provider Emergency Medicine; Family Provider Internal Medicine; PCP Internal Medicine; Visit Provider Family Medicine
DX: I47.1 Supraventricular tachycardia (principal); I49.9 Cardiac arrhythmia, unspecified; K21.9 Gastro-esophageal reflux disease without esophagitis; I10 Essential (primary) hypertension; J45.909 Unspecified asthma, uncomplicated; J32.9 Chronic sinusitis, unspecified; M19.90 Unspecified osteoarthritis, unspecified site; M35.1 Other overlap syndromes
CPT/HCPCS: 36415; 36591; 71045; 78452; 80048; 80053; 80061; 81003; 81015; 83036; 83690; 83735; 83880; 84443; 84484; 85025; 85610; 85730; 93005; 93016; 93017; 93018; 93041; 93306; 96361; 96374; 99285; G0378; A9502; J0153; J1650

== ENCOUNTER 2023-10-29 08:11 | Day surgery (SDC) | payer OTHER, SELFPAY ==
[2023-09-14 13:00] VITALS: BMI 23.8
[2023-10-20 14:46] VITALS: BMI 26.6
[2023-10-29] VITALS (12 sets, daily range): BP systolic 135–197; BP diastolic 61–87; PULSE 53–60; RESP 12–16; TEMP 36.2–36.7; O2SAT 96–100; BMI 26.4; BMI 26.9
[2023-10-29] MEDS: ACETAMINOPHEN 325 MG TABLET 975 MG PO (09:13)
[2023-10-29] MEDS: CELECOXIB 200 MG CAPSULE PO (09:14)
[2023-10-29] MEDS: LACTATED RINGERS 1,000 ML 42 ML IV ×2 (09:14→12:13)
--- NOTE | 2023-10-29 09:48 | P.OP_ITS ---
Operative Date/Time/Diagnoses Date of procedure: 10/29/23 Time of procedure: 10:30 Pre-op diagnosis: Left knee OA Post-op diagnosis: same Procedure & Clinicians Procedure: Left knee medial compartment arthroplasty Same procedure as scheduled: Yes Indications: The patient has had progressively worsening left knee pain with radiographic changes consistent with arthritis. Non-operative management has failed and the patient has requested medial unicompartment left knee replacement. The risks, benefits and alternatives to surgery were discussed with the patient prior to proceeding. Risks discussed included, but were not limited to, failure to relieve pain, stiffness, infection, nerve damage, deep venous thrombosis, pulmonary embolism, stroke, coma, heart attack, permanent paralysis and , as well as the potential need for eventual revision of the prosthetic. Surgeon: Cydney Block Administrative Support Manager: Pari Prince Anesthesia Type: Spinal, Sedation and Peripheral nerve block Operative Notes Findings: Severe left knee medial arthritis, adequate bone Closure Type: primary Specimen(s): none sent Prosthetic devices, grafts, tissues, transplants, or devices: Block and nephdennise edgar [employer]CS medial unicompartment size 4 femur, size 4 tibia Estimated Blood Loss (mL): 100 Blood products transfused: none Tourniquet time (min): 56 Procedure in detail: The patient was seen in the pre-operative area, where the left knee was identified as the operative site and this was marked with my initials. The patient received pre-operative antibiotics, and was taken to the operating room and placed on the operative table in the supine position. After satisfactory anesthesia, a multimedia services manager out was performed. The right leg was encircled with a tourniquet about the proximal thigh, and the leg was prepared from the toes to the tourniquet with ChloroPrep in the usual fashion and draped through sterile drapes. The leg was elevated and exsanguinated with Eschmark bandage and the tourniquet inflated to [250] mmHg pressure. PA was used during the procedure and was essential for retraction and safe implantation of the components. They were used for helping with exposure and expediting hemostasis and implantation of the components. The knee was approached through an approximately 10 cm incision medial parapatella incision and carried into the knee through a medial parapatellar arthrotomy. The osteophytes and medial meniscus were removed. Next, a small amount of the anterior tibial boss was carefully resected with a saw. The guide was placed along the medial joint line. It was meticulously adjusted to make sure there was appropriate slope that it was at the joint line and then was pinned to the tibia and the femur. The medial femoral condylar cut was made in extension. The tibial cut was made in flexion. The bone was meticulously irrigated with normal saline. Small amount of additional meniscus was resected posterior capsule was checked and injected with Marcaine. The extension gap was carefully checked with an 8 mm gap wood flooring specialist was noted that it fit well. A small number of additional osteophytes were resected. The tibia was a size [4]. It was noted that it fit without overhang. The femur was sized and it was noted to be a [4]. The appropriate cutting guide was pinned into place and carefully positioned on the femoral condyle. Drill holes were placed. The tibia was pinned into place and drill holes were made. Trial reduction with the appropriate poly showed full range of motion and good stability at 0, 45. and 90? with normal tracking of the components without edge loading. The bone was meticulously irrigated and dried. Additional Marcaine was injected. The posterior capsule was injected with 0.25% Marcaine mixed with 20 ml Exparel for post-operative pain control. The remainder of this mixture was injected into the capsule and subcutaneous tissues during cement curing. Range of motion was [0-130], with good stability throughout the range. The trials were then remove. The cement was as applied and the final prosthetics placed. Excess cement was removed during and after cement curing. After confirming there was no extruded cement posteriorly, the final tibial insert was placed. The knee was copiously irrigated and the tourniquet deflated. Hemostasis was obtained. The capsule was closed with interrupted vicryl. The subcutaneous tissue was closed with barbed sutures. The skin with a running 3-0 V-Lock suture and surgical glue. An Aquacel Ag dressing was applied and the patient was taken to recovery having tolerated the procedure well. Complications: none Post-operative Condition: stable Disposition: Acute Care Plan for aftercare: The patient will be maintained on a standard knee replacement protocol with weight bearing as tolerated. The patient will receive aspirin and sequential c ompression devices for DVT prophylaxis. The patient will be discharged home when safe for the home environment.
--- NOTE | 2023-10-29 09:48 | PM.PREOP ---
Pre-operative Note Interval Note History & Physical reviewed/Exam performed by Physician: Yes Changes to H&P: No
[2023-10-29] MEDS: VANCOMYCIN 1,000 MG/200 ML PIGGYBACK 200 MG IV (09:55)
--- NOTE | 2023-10-29 10:35 | SUR.PREOP ---
Block start time [1023]1023 . Monitoring initiated and maintained throughout procedure. Oxygen and medications given per anesthesiologist instructions. Patient remained stable throughout procedure, no adverse reactions noted. Block end time [1033].
--- NOTE | 2023-10-29 10:38 | SUR.PREOP ---
pt had sedation for block and blood pressure has come back to normal . pt to surgery.
[2023-10-29] MEDS: TRANEXAMIC ACID 1,000 MG VIAL 1000 MG INJ ×2 (11:00→12:04)
[2023-10-29] MEDS: CLINDAMYCIN 900 MG/50 ML PIGGYBACK 50 MG IV ×2 (11:00→18:44)
--- NOTE | 2023-10-29 11:00 | DI.RAD.S_ITS ---
PROCEDURE: XR KNEE LT 1TO2V INDICATIONS: LEFT UNIPOLAR KNEE POST OP TECHNIQUE: 2 view(s) of the knee acquired. COMPARISON: [facility], , KNEE 1-2 VIEWS RIGHT, 10/16/2016, 15:53. FINDINGS: Bones: Patient is status post medial left knee hemiarthroplasty. Hardware components are in expected positions. Visualized bony structures are intact. Soft tissues: Overlying postoperative changes are noted. IMPRESSION: Expected immediate postoperative appearance, status post medial left knee hemiarthroplasty. Dictated by: Rk Gatica M.D. on 10/29/2023 at 15:46 Approved by: Rk Gatica M.D. on 10/29/2023 at 15:47
--- NOTE | 2023-10-29 11:22 | SUR.OPER ---
Supine on padded OR bed. Pillow under head, arms secured on padded armboards <90 degree abduction. Safety belt across torso. Non-operative leg secured with tape over blanket over lower leg. Operative leg secured in DeMayo/Fabian/Nathe positioner. Foam padded brace at thigh of operative leg.
[2023-10-29] MEDS: BUPIVACAINE LIPOSOME 266 MG/20 ML VIAL INJ (11:32)
[2023-10-29] MEDS: BUPIVACAINE 0.25% (PF) 60 ML, EPINEPHrine 0.3 MG INJ (11:34)
[2023-10-29] MEDS: SODIUM CHLORIDE IRRIG SOLUTION 250 ML, POVIDONE-IODINE SPONGE STICKS 1 APPLIC IRR (12:08)
[2023-10-29] MEDS: LACTATED RINGERS 1,000 ML 100 ML IV (13:08)
--- NOTE | 2023-10-29 14:28 | OT.IPNOTE ---
Pt states only able to wiggle her left foot at this time, therefore just able to give pt the uni knee folder and get her prior level of care.
[2023-10-29] MEDS: IBUPROFEN 400 MG TABLET PO ×3 (15:37→21:07)
[2023-10-29] MEDS: ACETAMINOPHEN 325 MG TABLET 650 MG PO ×2 (15:38→21:12)
--- NOTE | 2023-10-29 17:44 | PT.IIE ---
Current Diagnoses Unilateral primary osteoarthritis, left knee (10/29/23) Surgery Performed Operation Date: 10/29/23 10:45 Actual Procedures p Medial Unicompartment Knee Arthroplasty(Left) - Cydney Block MD Surgical History (Last Updated 10/22/23 @ 09:32 by Luz Browne, RN) History of History of cardiac radiofrequency ablation (2019) History of gynecologic surgery History of lumpectomy of left breast Hx of cataract extraction (2011) Hx of cholecystectomy Hx of colonoscopy (12/04/17) Hx of tonsillectomy S/P right unicompartmental knee replacement (2015) Medical History (Last Updated 10/21/23 @ 14:49 by Luz Browne RN) Anemia Anxiety Asthma Chronic arthritis Chronic sinusitis Gastroesophageal reflux disease History of stomach ulcers HLD (hyperlipidemia) Hypertension Mixed connective tissue disease Osteoarthritis Physical Therapy Inpatient Evaluation/Re-Eval M1 PT/OT-IP Prior Functional Status Start: 10/29/23 14:29 Freq: NEEDED Status: Active Protocol: Document 10/29/23 17:38 MB (Rec: 10/29/23 17:44 MB [id number]) Medical Review Prior Functional Status Medical History Reviewed Yes Communication Independent Mobility and Gait Pt states would furniture cruise in the house. Activities of Daily Living and IADL's Due to pain, pt needing assist for her socks, shoes, and IADl needs. Prior Functional Level (Other details) Pt's to assist her at home per pt. Social History Household Members spouse Living Arrangements House Number of Floors (Floors) One Floor Number of Stairs To Enter/Railing? 5 steps with right rail going up to enter the house. Home Environment Standard Height Toilet,Walk in Shower Home Equipment Front Wheel Walker,Straight Cane,Raised Toilet Seat w/ Armrests,Long Handled Shoe Horn,Network Cable Installer Additional Social History Comment Pt wears glasses but states her daughter has them. Pt has order a shower stool and to use the back of the shower stall as a back. M2 PT-IP Current Condition Start: 10/29/23 17:02 Freq: NEEDED Status: Active Protocol: Document 10/29/23 17:38 MB (Rec: 10/29/23 17:44 MB [id number]) Physical Therapy Current Condition Current Condition Evaluation Date 10/29/23 Treatment Diagnosis L unicompartmental knee replacement M3 PT-IP Subjective Start: 10/29/23 17:02 Freq: NEEDED Status: Active Protocol: Document 10/29/23 17:38 MB (Rec: 10/29/23 17:44 MB [id number]) Subjective Physical Therapy Visit Type Type Initial Evaluation Visit Start Time 17:00 Visit Stop Time 17:20 Total Visit Minutes 20 Number of FRONT DESK LEAD Visits 0 Physical Therapy Visit Comments Patient Comments They are tingling a little bit. Therapy Pain Assessment Pain When Pain Assessed During Mobility Pain Present Pain Present Denied Pain M4 PT-IP Mobility and Gait Start: 10/29/23 17:02 Freq: NEEDED Status: Active Protocol: Document 10/29/23 17:38 MB (Rec: 10/29/23 17:44 MB [id number]) PT-Bed Mobility Assessment Supine to Sit Supine to Sit Minimal Assistance,1 Person Assistance,Head of Bed Elevated,Bedrails Sit to Supine Sit to Supine Minimal Assistance,1 Person Assistance,Head of Bed Elevated,Bedrails Scooting Scooting to Edge of Bed Minimal Assistance PT-Transfer Assessment Sit to and From Stand Sit to and from Stand Minimal Assistance,1 Person Assistance,Use of Upper Extremities Equipment Transfer Assistive Device Bed Rail,Front Wheeled Walker Orthotic/Prosthetic Devices or Brace: No Comments Mobility Comments PT places gait belt around left foot and pt is able to help scoot her leg to the left to the EOB. PT provides occ min A Gait Assessment Gait Gait Assistance Required: Minimum Assistance,1 Person Assist Distance (Feet) 3 Able to Maintain Weight Bearing Status No During Gait Assistive Devices Assistive Device Gait Belt,Front Wheeled Walker Orthotic/Prosthetic Devices or Brace: No Gait Deviations General Gait Pattern Decreased Stride Length, Decreased Feet Clearance, Flexed Trunk,Step-to Gait Factors Limiting Gait Function Factors Limiting Gait Function Decreased Activity Tolerance, Decreased Strength,Poor Balance,Poor Safety Awareness Comments Gait Comments Pt con't to report some tingling in feet that is more noticeable when standing and she is able to take a few left side steps with RW and min A PT-Balance Assessment Sitting Balance and Reactions Static Sitting Balance Ability Fair Dynamic Sitting Balance Ability Fair Standing Balance and Reactions Static Standing Balance Ability Fair Dynamic Standing Balance Ability Fair Device Used RW M5 PT-IP Objective Assessments Start: 10/29/23 17:02 Freq: NEEDED Status: Active Protocol: Document 10/29/23 17:38 MB (Rec: 10/29/23 17:44 MB [id number]) Orientation Orientation/Cognition Level of Alertness Alert Orientation Name,Age,Birthday,Month,Date, Year,Day of Week,Place, Situation Language Function Ability No Deficits Noted Safety Awareness Decreased Safety Awareness Memory Description No Deficits Noted Gross Range of Motion Upper Extremity ROM Assessment Within Functional Limits Lower Extremity ROM Assessment Left Impaired Impairments L knee ROM grossly 5-60 actively in supine Strength Upper Extremity Strength Assessment Within Functional Limits Lower Extremity Strength Assessment Left Impaired Ankle 4 Comments Strength Comments Left hip and knee MMT not tested Sensation Assessment Sensation Gross Sensation Right LE Impaired,Left LE Impaired Sensation Description Tingling M6 PT-IP Treatment Start: 10/29/23 17:02 Freq: NEEDED Status: Active Protocol: Document 10/29/23 17:38 MB (Rec: 10/29/23 17:44 MB [id number]) Physical Therapy Treatment Exercises Exercises Ankle Pumps,Gluteal Sets,Quad Sets,Heel Slides,Straight Leg Raises Education Education Provided Weight Bearing Status,Post-Op Packet,Safety M7 PT-IP Assessment and Plan Start: 10/29/23 17:02 Freq: NEEDED Status: Active Protocol: Document 10/29/23 17:38 MB (Rec: 10/29/23 17:44 MB [id number]) PT Summary Assessment and Plan Potential Rehabilitation Potential Good Status of Condition at Evaluation Evolving Summary Impairments ROM,Strength,Balance,Bed Mobility,Transfers,Gait, Activity Tolerance Progress Towards Goals Progressing Toward Goals Assessment Summary Pt is a pleasant lady who has reasonable AROM in supine same day left unicompartmental TKA . She con't with some feet tingling when standing on evaluation and is able to mobilize and take a few side steps with RW and min A. Goals Bed Mobility Goal Independent Transfer Goal Independent,Front Wheeled Walker Gait Goal Independent,Front Wheel Walker Gait Distance 100 Other Goals Pt will ascend and descend 5 steps with right rail ascend and no more than superv assistance. Days to Meet Goals 2 Frequency of Treatment Frequency Of Treatment Twice a Day Treatment Plan Physical Therapy Treatment Plan Bed Mobility Training,Transfer Training,Gait Training, Therapeutic Exercise,Balance Retraining,Post Op Education, Discharge Planning,Hot or Cold Pack Weight Bearing Status Weight Bearing Status Weight Bear as Tolerated Recommendations To Nursing Amount of Assist Needed 1 Person Assist Discharge Recommendations PT Discharge Recommendations Home with 25/05 Assist Available,Outpatient PT Transportation Needs at Discharge Private Vehicle
[2023-10-29] MEDS: DOCUSATE 100 MG CAPSULE PO (20:59)
[2023-10-29] MEDS: GABAPENTIN 300 MG CAPSULE 900 MG PO (20:59)
[2023-10-29] MEDS: ASPIRIN EC 81 MG TABLET PO (21:00)
[2023-10-29] MEDS: LOSARTAN 50 MG TABLET PO (21:00)
[2023-10-29] MEDS: FLECAINIDE 100 MG TABLET 50 MG PO (21:01)
[2023-10-29] MEDS: ATORVASTATIN 20 MG TABLET 10 MG PO (21:05)
[2023-10-29] MEDS: PANTOPRAZOLE DR 20 MG TABLET PO (21:12)
[2023-10-30] MEDS: LACTATED RINGERS 1,000 ML 100 ML IV (00:09)
[2023-10-30] MEDS: CLINDAMYCIN 900 MG/50 ML PIGGYBACK 50 MG IV (04:19)
[2023-10-30 05:23] LABS: Hematocrit 31.4 % (36-46); Hemoglobin 10.7 g/dL (12.0-16.0)
[2023-10-30] MEDS: IBUPROFEN 400 MG TABLET PO ×2 (06:13→10:48)
[2023-10-30] MEDS: PANTOPRAZOLE DR 20 MG TABLET PO (06:14)
--- NOTE | 2023-10-30 07:06 | PM.DS.1 ---
History of Present Illness History of Present Illness Date Patient Seen: 10/30/23 Time Patient Seen: 07:06 Chief complaint: Left Unicompartment Knee Arthroplasty Narrative: Operative Date/Time/Diagnoses Date of procedure: 10/29/23 Time of procedure: 10:30 Pre-op diagnosis: Left knee OA Post-op diagnosis: same Procedure & Clinicians Procedure: Left knee medial compartment arthroplasty Same procedure as scheduled: Yes Indications: The patient has had progressively worsening left knee pain with radiographic changes consistent with arthritis. Non-operative management has failed and the patient has requested medial unicompartment left knee replacement. The risks, benefits and alternatives to surgery were discussed with the patient prior to proceeding. Risks discussed included, but were not limited to, failure to relieve pain, stiffness, infection, nerve damage, deep venous thrombosis, pulmonary embolism, stroke, coma, heart attack, permanent paralysis and , as well as the potential need for eventual revision of the prosthetic. Surgeon: Cydney Block Departure Clerk: Pari Prince Anesthesia Type: Spinal, Sedation and Peripheral nerve block Operative Notes Findings: Severe left knee medial arthritis, adequate bone Closure Type: primary Specimen(s): none sent Prosthetic devices, grafts, tissues, transplants, or devices: Block and nephdennise edgar [facility] medial unicompartment size 4 femur, size 4 tibia Estimated Blood Loss (mL): 100 Blood products transfused: none Tourniquet time (min): 56 Discharge Providers Provider Discharge Date: 10/30/23 Primary care physician: Dolores Townsend PA-C Consults: 10/22/23 09:35 Consult to Anesthesiology Routine Comment: Consulting Provider: Anesthesiologist Reason for consultation: Surgeon requested re: Cardiac History 10/28/23 16:52 Consult to Anesthesiology Routine Comment: Consulting Provider: Anesthesiologist Reason for consultation: Regional block for post operative pain control 10/29/23 12:48 Consult to Discharge Planning Routine Comment: Consult to Occupational Therapy Evaluate & Treat Comment: Physician Instructions: Evaluate and treat Consult to Physical Therapy Evaluate & Treat Comment: Physician Instructions: postop TKA protocol Discharge provider: Pari Prince PA-C Summary Hospital Course Discharge Diagnosis: Left knee osteoarthritis, s/p left medial unicompartmental knee arthroplasty Hospital Course: Ms Prince's hospital course was unremarkable. On the morning of POD# 1, she was feeling well and wanted to go home. She was eating and voiding without difficulty and her pain was well-controlled without narcotic medication. She had been evaluated by PT and they felt she was appropriate for discharge to home. Exam Vital Signs (past 8 hours): Oxygen Delivery Method Room Air Oxygen Flow Rate 0 Narrative Exam Narrative: 5/5 strength in hip flexors, quadriceps, hamstrings, DF, PF, EHL on left. Sensation to light touch intact throughout LLE. Calf soft, compressible, nontender. SERA over Aquacel dressing CDI. Objective Labs 10/30/23 04:47 Labs: Laboratory Results - last 24 hr 10/30/23 04:47 Hgb 10.7 L Hct 31.4 L PFSH Medical History (Updated 10/21/23 @ 14:49 by Luz Browne RN) Anxiety Osteoarthritis HLD (hyperlipidemia) History of stomach ulcers Anemia Asthma Mixed connective tissue disease Chronic arthritis Chronic sinusitis Hypertension Gastroesophageal reflux disease Surgical History (Updated 10/30/23 @ 07:13 by Pari Prince PA-C) S/P right unicompartmental knee replacement (2015) History of cardiac radiofrequency ablation (2019) Hx of cataract extraction (2011) Hx of tonsillectomy History of lumpectomy of left breast History of gynecologic surgery History of Hx of colonoscopy (12/04/17) Hx of cholecystectomy Social History (Updated 12/04/18 @ 19:12 by Eugene Ballesteros DO) marital status: household members: spouse lives independently: Yes Smoking Status: Former smoker alcohol intake: current Discharge Assessment & Plan Assessment and Plan Assessment: Left knee osteoarthritis, s/p left medial unicompartmental knee arthroplasty Plan of Treatment: Discharge home, ASA BID for VTE prophylaxis, outpt PT, f/u in office in 2 weeks as scheduled. She has multiple medication allergies/intolerances but is willing to accept a prescription for tramadol for more severe pain. Discharge Plan Discharge Plan Patient Disposition: Home Discharge orders & Medications Discharge Orders: Discharge (Order); Ordered 10/29/23 Ordered By: Adan Vinson Prescriptions: New tramadol 50 mg tablet 50 mg PO Q6H PRN (Reason: pain (scale score 7-10)) Qty: 20 0RF ondansetron 4 mg Tablet,Disintegrating 4 mg PO Q6H PRN (Reason: Nausea And Vomiting) Qty: 20 0RF Continued omeprazole 20 MG capsule,delayed release(DR/EC) 20 mg PO BID Qty: 0 gabapentin [Neurontin] 300 MG capsule 900 mg PO BID Qty: 0 acetaminophen 500 MG tablet 2 - 4 tab PO QDAYP PRN (Reason: pain) Qty: 0 fluticasone propionate [Flonase Allergy Relief] 9.9 ML spray,suspension 1 spray Intranasal QDAY PRN (Reason: Nasal Congestion) Qty: 0 losartan 50 mg tablet 50 mg PO BID diclofenac sodium 1 % Gel 2 g TOPICAL QID mecobalamin (vitamin B12) 1,000 mcg Tablet,Disintegrating 500 mcg SUBLINGUAL DAILY metoprolol tartrate 50 mg Tablet 75 mg PO BID atorvastatin 10 mg Tablet 10 mg PO BEDTIME meloxicam 15 mg Tablet 15 mg PO DAILY flecainide 50 mg Tablet 50 mg PO Q12H Follow up/Referrals: Cydney Block MD [Physician] - As previously scheduled (Follow up with Adan Vinson PA-C, on 11/12/2023 @ 9:50 am at [facility] Dolores Townsend PA-C [Primary Care Provider] - Diet/Activity/Treatments Diet: Diet as Tolerated Activity: Walk frequently! Cold/Heat Therapy: Ice to knee as needed for pain. Skin/Wound/Dressing Care Report to your healthcare provider any signs of infection, such as:: chills, fever, night sweats, unusual drainage and unusual redness Dressing: May remove SERA wrap and shower on 11/01/2023. Leave dressing in place until follow up in office. No bathing or otherwise soaking incision. Call the office if the dressing becomes saturated inside. Visit Report/Discharge Packet Instructions: DI for Knee Replacement, DI for Prescription Opioid Use Stand Alone Forms: Patient Portal/API, Surgery Discharge Discharge Data Primary Care Provider: Dolores Townsend Attending Provider: Cydney Block Quality VTE Deep Vein Thrombosis/Pulmonary Embolism Present on Admission: No
[2023-10-30 08:19] VITALS: BP 170/73; PULSE 60
[2023-10-30] MEDS: GABAPENTIN 300 MG CAPSULE 900 MG PO (08:19)
[2023-10-30] MEDS: ASPIRIN EC 81 MG TABLET PO (08:19)
[2023-10-30] MEDS: LOSARTAN 50 MG TABLET PO (08:19)
[2023-10-30] MEDS: METOPROLOL IR 50 MG TABLET 75 MG PO (08:19)
[2023-10-30 08:20] VITALS: BP 170/73; PULSE 60; RESP 19; TEMP 36.3; O2SAT 95
[2023-10-30] MEDS: FLECAINIDE 100 MG TABLET 50 MG PO (08:20)
[2023-10-30] MEDS: ACETAMINOPHEN 325 MG TABLET 650 MG PO (08:20)
[2023-10-30] MEDS: DOCUSATE 100 MG CAPSULE PO (08:20)
--- NOTE | 2023-10-30 08:48 | CM.DANOTE ---
Initial DCP Assessment Visit Note Reviewed EMR for pt's medical status and anticipated d/c needs. Met with pt at bedside to introduce self and role. Pt was found to be alert/oriented, stating that her pain is well managed at this time. She has a d/c order in, PT will work with her this morning, then the plan is for pt to d/c home, family will transport. She has a f/u OP visit with Ortho scheduled in 2-weeks, and then will begin working with OP PT. Payor: [facility] [employer]age Attending: Dr. Cydney Block Pt is a 78 year-old F placed in a [facility] bed following her L-knee arthroplasty, completed yesterday 10/29/23. Pt has a hx of progressively worsening L-knee pain w/radiographic changes that did not improve with conservative pain management measures. Pt was evaluated by Dr. Block and was found to have worsening unilateral primary osteoarthritis of her left knee. Pt is progressing with PT/OT, no further needs identified by pt for DCP needs. Discharge Planning/Care Management CM Discharge Assessment Start: 10/30/23 08:21 Freq: Status: Active Protocol: Document 10/30/23 08:46 DPL (Rec: 10/30/23 08:48 DPL [id number]) Discharge Planning Assessment Assigned Poultry Farmer JENNIFER Le Advance Directives? Yes Advance Directives on File Yes History Provided By Patient,Medical Record Has Patient been admitted in last 30 No days? Prior Living Arrangements House Household Members spouse Type of transporation used prior to Drives own vehicle admit Independent with ADL's Yes Is patient alert and oriented? Yes Comment Needs assistance with IADL's. Caregiver for Another No DME Already Rented / Owned Bath Bench,Elevated Toilet Seat,FWW / Walker,Cane Patient/Family Preference OP PT Therapy Barriers to Discharge No Discharge Plan Home Transportation Arrangement Spouse Referrals Initiated None needed Whiteboard Updated in Patient Room with Yes name and ext. # of Poultry Farmer Review Status In Process Please Provide Date Initial DC 10/30/23 Assessment Was Performed Pre-Anesthesia Assessment Start: 10/20/23 14:46 Freq: Status: Complete Protocol: Document 10/20/23 14:46 CAB (Rec: 10/20/23 15:28 CAB [id number]) Pre-Anesthesia Assessment Preferred Name Melvina Patient Information Reviewed Via Chart Review,Phone Assessment Assessment Completed With Patient Diagnostic Results BMP/CMP,CBC,EKG,Urinalysis Comment Outside labs/EKG scanned Primary Care Provider Dolores Townsend Comment PCP pre-op 07/16/23 scanned Seen Specialist in Last 12 Months Yes Specialist Seen Server,Orthopedist Primary Language Cameroonian Preferred Language Cameroonian Tankroom Tender Required No Height 162.56 cm Weight 70.307 kg Body Mass Index (BMI) 26.6 Hearing Ability Normal Visual Assist Glasses Dentition Type Teeth, Natural Present,Teeth, Missing Barriers to Learning Age related,Memory Hx Anesthesia Reactions No Hx Family Anesthesia Reaction No Hx Malignant Hyperthermia No Hx Blood Transfusions No Anesthesia Review Requested Yes: Surgeon requested re: Cardiac History Law Office Manager No alcohol intake current alcohol intake frequency a few times a week Smoking Status Former smoker how long ago did patient quit smoking Quit in her 20's Substance Use Type does not use Pain Present Pain Reported Musculoskeletal Symptoms Abnormal Gait,Arthralgias,Back Pain,Difficulty Walking,Joint Pain,Neck Pain History of Falling (Recent or History of No ) Patient is completely paralyzed or No completely immobile Prosthesis or Orthotic Device Cane Mental Status Oriented to own ability Is patient on oxygen? No Does patient have AMEZQUITA/SOB No Hx Sleep Apnea No Currently Taking a Beta Katie Yes: Metoprolol Can You Climb a Flight of Stairs Without Yes SOB Hx Chest Pain No Hx SOB No Hx Syncope or Dizziness No Anti-Coagulant Therapy No Has a Server Yes: Last visit 01/08/[address] Medrano Cardiac Testing No Hx Pacemaker/ICD No Pacemaker Rep Required? No Cardiac Clearance Received Yes Comment Cardiac records scanned Diet Type At Home Regular Dysphagia No Gastrointestinal Symptoms Reflux Urinary Catheter Present No Hx Urinary Self Catheterization No Diabetes No HgbA1C 5.8 Date 09/15/23 Patient No Lactating No Presence of External or Internal Medical Yes: right knee prosthesis, Devices bilat eye IOLs Received a COVID vaccine? Yes Received all doses? Yes Marital Status Lives With spouse Current Living Arrangements House Support System Child/Children,Spouse Comment Daughter will stay w/pt to assist with care at DC Does the Patient Have Assistance After Yes Surgery Patient Discharge Plan Description Return Home Comment Pt advised same day surgery Do You Have Any Spiritual Beliefs That No May Affect Your HC Choices? Do You Have Any Cultural Practices That No May Affect Your HC Choices? Health Care Proxy/Next of Kin Dwayne Prince () Health Care Proxy Emergency Contact Name Dwayne Prince Emergency Contact Advance Directives? Yes Power of Motorcycle Repairer Yes PAC Instructions Assistance for 24 hours post- op,Durable medical equipment, Medications to take/avoid, Nasal antibiotic,No ETOH/ petroleum product on skin DOS, NPO,Post-op transportation,Pre -surgical wash,Sensory aids, Sturdy shoes/comfortable clothes,Do not bring valuables and remove jewelry
--- NOTE | 2023-10-30 10:11 | PT.IPTN ---
Current Diagnoses Unilateral primary osteoarthritis, left knee (10/29/23) Presence of unspecified artificial knee joint (10/29/23) Surgery Performed Operation Date: 10/29/23 10:45 Actual Procedures p Medial Unicompartment Knee Arthroplasty(Left) - Cydney Block MD Physical Therapy Treatment Note M2 PT-IP Current Condition Start: 10/29/23 17:02 Freq: NEEDED Status: Discharge Protocol: Document 10/29/23 17:38 MB (Rec: 10/29/23 17:44 MB [id number]) Physical Therapy Current Condition Current Condition Evaluation Date 10/29/23 Treatment Diagnosis L unicompartmental knee replacement M3 PT-IP Subjective Start: 10/29/23 17:02 Freq: NEEDED Status: Discharge Protocol: Document 10/30/23 10:11 AB (Rec: 10/30/23 13:24 AB [id number]) Subjective Physical Therapy Visit Type Type Treatment Note Visit Start Time 10:11 Visit Stop Time 10:44 Total Visit Minutes 33 Number of SHERIFF OFFICER Visits 0 Physical Therapy Visit Comments Patient Comments pt is agreeable to do PT Therapy Pain Assessment Pain When Pain Assessed At Rest Location Left Knee Intensity 3 Scale Used Numeric (0 - 10) Pain Management Techniques Distraction,Modification of Treatment,Re-positioning, Timing of Activity with Medications M4 PT-IP Mobility and Gait Start: 10/29/23 17:02 Freq: NEEDED Status: Discharge Protocol: Document 10/30/23 10:11 AB (Rec: 10/30/23 13:24 AB [id number]) PT-Bed Mobility Assessment Supine to Sit Supine to Sit Standby Assistance Sit to Supine Sit to Supine Standby Assistance PT-Transfer Assessment Sit to and From Stand Sit to and from Stand Contact Guard Assistance,1 Person Assistance,Use of Upper Extremities Equipment Transfer Assistive Device Gait Belt,Front Wheeled Walker Orthotic/Prosthetic Devices or Brace: No Transfers Transfer Destination Chair Transfer Technique ambulated Transfer Ability Level of Assist Contact Guard Assistance,1 Person Assistance,Use of Upper Extremities Comments Mobility Comments pt in room with spouse and daughter. pt completed sit to stand from chair CGA and ambulated in room using FWW CGA ~ 20 ft. caregiver training conducted. educated spouse on use of safety belt and how to assist pt. spouse was able to put safety belt on and assisted pt with sit to stand and ambulation in room using FWW CGA. pt sat on EOB and demonstrated sit<>supine SBA. pt agreed to do stairs. spouse assisted pt with ambulation in the hallway using FWW ~ 125 ft CGA. stair climbing training. PT educated pt on how to do stairs using R rail and educated spouse on how to assist pt. pt completed up/ down 3 steps using R rail min A and cues. assessed stair climbing using R rails + SPC. pt completed again with spouse assisting CGA to min A. pt ambulated back to her room CGA using FWW from spouse . pt sat on chair. positioned on the chair. call light and table placed within reach. pt and family without further concerns. Gait Assessment Gait Gait Assistance Required: Contact Guard Assist Distance (Feet) 125 Able to Maintain Weight Bearing Status Yes During Gait Assistive Devices Assistive Device Gait Belt,Front Wheeled Walker Orthotic/Prosthetic Devices or Brace: No Gait Deviations General Gait Pattern Decreased Stride Length, Decreased Feet Clearance Factors Limiting Gait Function Factors Limiting Gait Function Decreased Activity Tolerance, Decreased Strength,Limited Range of Motion,Pain,Poor Balance,Poor Safety Awareness Stair Climbing Assessment Evaluation Level of Assist On Stairs Contact Guard Assistance, Minimal Assistance,1 Person Assistance Devices Stair Climbing Assistive Devices Straight Cane,Right Railing Technique/Endurance Stair Climbing Direction Ascend and Descend Stair Climbing Technique Step to Step Number of Steps Climbed 3 Stair Climbing Set # Repetitions (reps) 2 M5 PT-IP Objective Assessments Start: 10/29/23 17:02 Freq: NEEDED Status: Discharge Protocol: Document 10/29/23 17:38 MB (Rec: 10/29/23 17:44 MB [id number]) Orientation Orientation/Cognition Level of Alertness Alert Orientation Name,Age,Birthday,Month,Date, Year,Day of Week,Place, Situation Language Function Ability No Deficits Noted Safety Awareness Decreased Safety Awareness Memory Description No Deficits Noted Gross Range of Motion Upper Extremity ROM Assessment Within Functional Limits Lower Extremity ROM Assessment Left Impaired Impairments L knee ROM grossly 5-60 actively in supine Strength Upper Extremity Strength Assessment Within Functional Limits Lower Extremity Strength Assessment Left Impaired Ankle 4 Comments Strength Comments Left hip and knee MMT not tested Sensation Assessment Sensation Gross Sensation Right LE Impaired,Left LE Impaired Sensation Description Tingling M6 PT-IP Treatment Start: 10/29/23 17:02 Freq: NEEDED Status: Discharge Protocol: Document 10/30/23 10:11 AB (Rec: 10/30/23 13:24 AB [email or web address]) Physical Therapy Treatment Education Education Provided Precautions,Weight Bearing Status,Safety M7 PT-IP Assessment and Plan Start: 10/29/23 17:02 Freq: NEEDED Status: Discharge Protocol: Document 10/30/23 10:11 AB (Rec: 10/30/23 13:24 AB [id number]) PT Summary Assessment and Plan Potential Rehabilitation Potential Good Summary Impairments Pain,ROM,Strength,Balance, Coordination,Cognition,Bed Mobility,Transfers,Gait, Activity Tolerance Progress Towards Goals Progressing Toward Goals Assessment Summary pt requiring CGA with ambulation and CGA to min A for stair climbing. caregiver training conducted and spouse was able to safely assist pt. pt plans to go home today . Goals Bed Mobility Goal Independent Transfer Goal Independent,Front Wheeled Walker Gait Goal Independent,Front Wheel Walker Gait Distance 100 Other Goals Pt will ascend and descend 5 steps with right rail ascend and no more than superv assistance. Days to Meet Goals 2 Frequency of Treatment Frequency Of Treatment Twice a Day Treatment Plan Physical Therapy Treatment Plan Bed Mobility Training,Transfer Training,Gait Training, Therapeutic Exercise,Balance Retraining,Post Op Education, Discharge Planning,Hot or Cold Pack Weight Bearing Status Weight Bearing Status Weight Bear as Tolerated Allowed Weight Bearing Amount (enter % LLE WBAT or #) (%) Recommendations To Nursing Amount of Assist Needed 1 Person Assist Discharge Recommendations PT Discharge Recommendations Home with Assistance, Outpatient PT Transportation Needs at Discharge Private Vehicle
--- NOTE | 2023-10-30 11:10 | OT.IP.EVAL ---
Current Diagnoses Unilateral primary osteoarthritis, left knee (10/29/23) Presence of unspecified artificial knee joint (10/29/23) Surgery Performed Operation Date: 10/29/23 10:45 Actual Procedures p Medial Unicompartment Knee Arthroplasty(Left) - Cydney Block MD Past Medical History (Last Updated 10/21/23 @ 14:49 by Luz Browne, RN) Anemia Anxiety Asthma Chronic arthritis Chronic sinusitis Gastroesophageal reflux disease History of stomach ulcers HLD (hyperlipidemia) Hypertension Mixed connective tissue disease Osteoarthritis Surgical History (Last Updated 10/22/23 @ 09:32 by Luz Browne RN) History of History of cardiac radiofrequency ablation (2019) History of gynecologic surgery History of lumpectomy of left breast Hx of cataract extraction (2011) Hx of cholecystectomy Hx of colonoscopy (12/04/17) Hx of tonsillectomy S/P right unicompartmental knee replacement (2015) Occupational Therapy Inpatient Evaluation/Re-Eval M1 PT/OT-IP Prior Functional Status Start: 10/29/23 17:02 Freq: NEEDED Status: Active Protocol: Document 10/30/23 11:08 [facility] (Rec: 10/30/23 11:18 [facility] [id number]) Medical Review Prior Functional Status Medical History Reviewed Yes Communication Independent Mobility and Gait Pt states would furniture cruise in the house. Activities of Daily Living and IADL's Due to pain, pt needing assist for her socks, shoes, and IADl needs. Prior Functional Level (Other details) Pt's to assist her at home per pt. Social History Household Members spouse Living Arrangements House Number of Floors (Floors) One Floor Number of Stairs To Enter/Railing? 5 steps with right rail going up to enter the house. Home Environment Standard Height Toilet,Walk in Shower Home Equipment Front Wheel Walker,Straight Cane,Raised Toilet Seat w/ Armrests,Long Handled Shoe Horn,Social Media Developer Additional Social History Comment Pt wears glasses but states her daughter has them. Pt has order a shower stool and to use the back of the shower stall as a back. M2 OT-IP Current Condition Start: 10/29/23 14:29 Freq: Status: Active Protocol: Document 10/30/23 11:08 [facility] (Rec: 10/30/23 11:18 [facility] [id number]) Occupational Therapy Current Condition Current Condition Evaluation Date 10/30/23 Treatment Diagnosis S/P L uni knee replacement Diagnosis Onset Date 10/29/23 M3 OT- IP Subjective and Pain Start: 10/29/23 14:29 Freq: Status: Active Protocol: Document 10/30/23 11:08 [facility] (Rec: 10/30/23 11:18 [facility] [id number]) OT- Subjective Occupational Therapy Visit Type Type Initial Evaluation Visit Start Time 10:42 Visit Stop Time 11:07 Total Visit Minutes 25 Occupational Therapy Visit Comments Patient Comments Pt agreed to get dressed. Patient/Caregiver Goals To go home. OT Pain Assessment Pain When Pain Assessed At Rest Pain Present Pain Present Denied Pain M4 OT- IP ADL's Start: 10/29/23 14:29 Freq: Status: Active Protocol: Document 10/30/23 11:08 [facility] (Rec: 10/30/23 11:18 [facility] [id number]) OT IIW-Kjef-Pnumxcl General Evaluation Self-Feeding Ability Independent OT ADL-Grooming General Evaluation Grooming Ability Independent OT ADL-Oral Care General Eval Oral Care Ability Independent OT ADL-Dressing General Eval Upper Body Dressing Ability Independent Lower Body Dressing Ability Minimal Assistance Areas Needing Assistance Shoes Comments OT Dressing Comments Pt's left foot a little swollen and assist to get her heel in. Educated to dress her LLE first and take out last. Able to practice with use of hyperbaric nurse. OT ADL-Toileting General Evaluation Toileting Ability Standby Assistance Comments OT Toileting Comments Pt agreed to wear pads initially so not having to williamson to the bathroom at night. OT ADL-Bathing Comments OT Bathing Comments Pt states to do at home and has ordered a shower stool. Went over shower needs with the bandage. M5 OT- IP IADL's Start: 10/29/23 14:29 Freq: Status: Active Protocol: Document 10/30/23 11:08 [facility] (Rec: 10/30/23 11:18 [facility] [id number]) OT-Instrumental Activities of Daily Living Deficits IADL Deficits Identified Deficits Home Safety Awareness Awareness of Need for Assistance at Home Good Awareness Ability to Problem Solve Emergency Able to Problem Solve Situations Home Safety Comments Pt has supportive and daughter to assist with all needs. Meal Preparation Meal Preparation Caregiver Provides Assist Psychiatric Arnp Psychiatric Arnp Caregiver Provides Assist M6 OT- IP Functional Cognition Start: 10/29/23 14:29 Freq: Status: Active Protocol: Document 10/30/23 11:08 [facility] (Rec: 10/30/23 11:18 [facility] [id number]) Cognitive Factors Limiting Selfcare Function Cognitive Ability Level of Alertness Alert Patient Orientation Name,Age,Birthday,Month,Date, Year,Day of Week,Place, Situation Attention Span Ability Capable of Focused Attention, Capable of Sustained Attention Ability to Follow Commands Able to Follow One Step Commands Cognitive Comments Cognitive Assessment Comments Pt able to follow command for ADL and mobility needs. OT- Vision and Hearing OT- Hearing Assessment OT- Hearing Assessment WFL OT- Vision Assessment Visual Acuity Glasses All The Time Visual Attentiveness WFL Occular Pursuits WFL Visual Convergence WFL M7 OT- IP Mobility and Balance Start: 10/29/23 14:29 Freq: Status: Active Protocol: Document 10/30/23 11:08 [facility] (Rec: 10/30/23 11:18 [facility] [id number]) OT-Transfer Assessment Sit to and From Stand Sit to and from Stand Standby Assistance Transfers Transfer Ability Standby Assistance Technique Transfer Destination Chair,Toilet Transfer Technique Stand Step Pivot Devices Transfer Assistive Devices Front Wheeled Walker Comments Mobility Comments SBA to stand and up with the FWW. Pt just having caregiver training with PT and family states feel comfortable to assist pt for all mobility needs at this time. OT- Balance Assessment Sitting Balance and Reactions Static Sitting Balance Ability Normal Dynamic Sitting Balance Ability Good Standing Balance and Reactions Static Standing Balance Ability Good Dynamic Standing Balance Ability Fair M8 OT- IP Objective Assessments Start: 10/29/23 14:29 Freq: Status: Active Protocol: Document 10/30/23 11:08 [facility] (Rec: 10/30/23 11:18 [facility] [id number]) OT Gross Range of Motion Upper Extremity Range of Motion Assessment Within Functional Limits OT Strength Upper Extremity Strength Assessment Within Functional Limits M9 OT- IP Assessment and Plan Start: 10/29/23 14:29 Freq: Status: Active Protocol: Document 10/30/23 11:08 [facility] (Rec: 10/30/23 11:18 [facility] [id number]) OT Summary Assessment and Plan Potential Rehabilitation Potential Excellent Analytic Complexity at Evaluation Low Summary OT Impairments Strength,Balance,Functional Mobility,Dressing,Bathing, Shower Transfers Progress Towards Goals Progressing Toward Goals Assessment Summary Pt low complexity,doing well and family able to participate with caregiver training for all ADl and mobility needs. Pt has already ordered a shower stool for home use. Pt to go home with assist and have outpt PT. Goals Dressing Goal Independent,Long Handled Shoe Horn,Social Media Developer Toileting Goal Independent Bathing Goal Standby Assistance Toilet Transfer Goal Independent Shower Transfer Goal Standby Assistance Days to Meet Goals 3 Frequency of Treatment Frequency Of Treatment Once a Day Treatment Plan OT Treatment Plan ADL Training,Functional Mobility,Patient/Family Education,Discharge Planning Discharge Recommendations OT Discharge Recommendations Home with Assistance, Outpatient PT Transportation Needs at Discharge Private Vehicle
== END 2023-10-30 11:25 | disposition home or self-care (01) ==
LOC: OR 13:05 → AC 13:08
PROVIDERS: Family Provider Internal Medicine; PCP Physician Assistant Medical; Referring Provider Orthopaedic Surgery; Visit Provider Orthopaedic Surgery
PROC: (CPT 27446; principal; 2023-10-29 10:45)
DX: M17.12 Unilateral primary osteoarthritis, left knee (principal); G89.18 Other acute postprocedural pain
CPT/HCPCS: 27446; 36415; 64450; 73560; 85014; 85018; 97161; 97165; 97530; 97535; C1776; C1713; C9290; J0171; J0330; J1100; J1885; J2250; J2405; J2704

== ENCOUNTER 2025-07-05 09:02 | Outpatient (CLI) | payer OTHER, SELFPAY ==
[2025-04-27 11:17] VITALS: BMI 26.9
[2025-07-05 10:30] VITALS: BP 150/90; PULSE 61; RESP 18; TEMP 36.4; O2SAT 95
[2025-07-05 10:43] VITALS: PULSE 57; O2SAT 98
[2025-07-05 10:48] VITALS: PULSE 54; O2SAT 99
[2025-07-05] MEDS: LIDOCAINE 1% (PF) 5 ML 10 ML INJ (10:49)
[2025-07-05 10:55] VITALS: BP 183/85; PULSE 53; RESP 16; O2SAT 97
[2025-07-05 11:10] VITALS: BP 150/90; PULSE 54; RESP 16; O2SAT 98
--- NOTE | 2025-07-05 13:49 | P.PCN_ITS ---
Date/Time/Diagnoses Date of procedure: 06/07/25 Pre-procedure diagnosis: Lumbar stenosis with radiculopathy, neurogenic claudic ation Post-procedure diagnosis: same Procedure Notes Procedure: Interlaminar epidural steroid injection L3-4 Indications: Lumbar stenosis with radiculopathy, neurogenic claudication Physician: Monster Almaraz Total sedation minutes: 0 Complications: none Procedure in detail & Post-procedure care: Patient is here for the planned procedure today as noted. No significant change since the last office visit. For additional clinical scenario please see those office notes. Focused exam: Vital signs reviewed as charted on intake. Gen: Well developed. No acute distress. CV: RRR, no M/R/G Chest: Non-labored breathing, CTAB. Psych: Alert and well-oriented. Mood/Affect: normal. Patient suitable for the planned procedure today: Yes === The following procedure was performed in the office today: Lumbar Epidural Steroid Injection with fluoroscopic guidance - Interlaminar approach (22743) Levels Treated: L3-4 Approach: interlaminar Soft tissue: [1% lidocaine 2 mL] Test dose: [1% lidocaine 1 mL] Injectate: 1 mL of dexamethasone (10mg/mL) in 1 mL 1% lidocaine and 1.5 mL normal saline Fluoroscopy Agent: Isovue 300-M 1.5 mL Notes: Because in clinic I had difficulty accessing the controlled substance prescriptions, she had indicated that she would reach out to her PCP to obtain a prescription for preprocedure Valium, however she states today that her PCP declined to fill this as she would prefer that I took care of it. I would have no difficulty doing so, and I do have access to the system now, but was not notified of the issue until now. Nevertheless patient is amenable to proceed with the procedure without premedication as I told her I am confident she will be fine without it. She has a long list of allergies/adverse effects and I think it would be best to see if she is able to do the procedure without any premedication anyway. We did proceed and indeed, she did tolerate the procedure very well. 4.5 in 20 gauge Touhy needle was utilized and adequate. Preprocedure pain 10/10, postprocedure pain 4/10. Procedure: After discussing the risks, benefits, and alternatives to the procedure, the patient expressed understanding and wished to proceed. The risks include but are not limited to infection, allergic reaction, nerve damage, stroke, paralysis, epidural hematoma, syncope, headache, respiratory or cardiac arrest, spinal cord injury, and scar formation. Informed consent was obtained and all patient questions were answered. The patient was brought to the procedure suite and placed in the prone position. A pre-procedural pause was conducted to verify: correct patient identity, procedure to be performed and as applicable, correct side and site, correct patient position, and any special requirements. Using a paramedian approach from the side noted above, the region overlying the target was localized under fluoroscopic visualization and the soft tissues overlying this structure were infiltrated with the anesthetic listed above. With fluoroscopic guidance, a #20 gauge Tuohy needle (unless otherwise noted) was inserted into the epidural space using a paramedian approach. The epidural space was localized utilizing intermittent multiplanar fluoroscopic guidance and loss of resistance technique. After negative aspiration, the contrast noted above was injected into the epidural space and the flow of contrast was observed, confirming epidural spread without evidence of intravascular or intrathecal spread. Multi-planar radiographs were obtained for documentation purposes. A test dose of lidocaine was injected into the above noted epidural space, and the patient was observed for 30-60 seconds. No sensory deficits were reported and normal lower extremity motor function was noted. Subsequently, the injectate as noted above was administered into the level noted above. The patient tolerated the procedure well and was discharged after an appropriate period of observation. If there are any complications, the patient was instructed to call us. The patient is to follow-up with the requesting provider in 2-3 weeks. This note was compiled using voice recognition software and therefore may contain typos. Please contact the author with any questions or concerns.
== END 2025-07-05 11:10 | disposition home or self-care (01) ==
LOC: RAD 09:02
PROVIDERS: Family Provider Internal Medicine; PCP Physician Assistant Medical; Referring Provider Physician Assistant Medical; Visit Provider Physical Medicine & Rehabilitation
DX: M48.062 Spinal stenosis, lumbar region with neurogenic claudication (principal); M54.16 Radiculopathy, lumbar region
CPT/HCPCS: 62323; J1100

== ENCOUNTER → 2025-08-04 10:15 | Outpatient (CLI) | payer OTHER, SELFPAY ==
[2025-07-25 10:50] VITALS: BMI 26.9
--- NOTE | 2025-08-04 10:17 | DI.RAD.S_ITS ---
PROCEDURE: XR LUMBAR SPINE 2-3V INDICATIONS: listhesis TECHNIQUE: 3 views of the lumbar spine were acquired, including flexion and extension views. COMPARISON: MR lumbar spine 12/27/2024. FINDINGS: Bones: 5 [id number] vertebrae are present. There is grade 1 anterolisthesis of L4 on L5 and L5 on S1. No vertebral body compression fractures. No suspicious bony lesions. Moderate facet arthropathy is present at L4-L5 and L5-S1. No evidence of instability on flexion and extension views. Soft tissues: Overlying bowel gas pattern is normal. No suspicious soft tissue calcifications. IMPRESSION: Grade 1 anterolisthesis of L4 on L5 and L5 on S1, without evidence of instability on flexion-extension views. Dictated by: Leena Ruelas M.D. on 08/06/2025 at 23:22 Approved by: Leena Ruelas M.D. on 08/06/2025 at 23:26
== END ==
PROVIDERS: Family Provider Internal Medicine; PCP Physician Assistant Medical; Referring Provider Physical Medicine & Rehabilitation; Visit Provider Physical Medicine & Rehabilitation
DX: M43.16 Spondylolisthesis, lumbar region (principal); M47.816 Spondylosis without myelopathy or radiculopathy, lumbar region; M43.17 Spondylolisthesis, lumbosacral region; M47.817 Spondylosis without myelopathy or radiculopathy, lumbosacral region
CPT/HCPCS: 72100

== ENCOUNTER 2025-08-17 08:18 | Outpatient (CLI) | payer OTHER, SELFPAY ==
[2025-07-25 10:50] VITALS: BMI 26.9
[2025-08-17 09:00] VITALS: BP 146/65; PULSE 53; RESP 17; TEMP 36.3; O2SAT 97
[2025-08-17 09:24] VITALS: BP 206/91; PULSE 51; O2SAT 98
[2025-08-17 09:29] VITALS: BP 207/91; PULSE 54; RESP 18; O2SAT 97
[2025-08-17] MEDS: LIDOCAINE 2% INJ SDV 5ML 15 ML INJ (09:30)
[2025-08-17 09:34] VITALS: BP 195/81; PULSE 51; RESP 18; O2SAT 96
[2025-08-17 09:39] VITALS: BP 190/88; PULSE 51; RESP 18; O2SAT 96
[2025-08-17 09:49] VITALS: BP 154/68; PULSE 54; RESP 18; O2SAT 96
--- NOTE | 2025-08-17 12:33 | PM.PROC.IR.1 ---
Date/Time/Diagnoses Date of procedure: 08/17/25 Time of procedure: 09:00 Pre-procedure diagnosis: Low back pain, lumbar spondylosis Post-procedure diagnosis: same Procedure Notes Procedure: Diagnostic medial branch block, bilateral L4-5 and L5-S1 facet joint nerves Indications: Low back pain, lumbar spondylosis Physician: Monster Almaraz Total sedation minutes: 0 Complications: none Procedure in detail & Post-procedure care: Patient is here for the planned procedure today as noted. No significant change since the last office visit. For additional clinical scenario please see those office notes. Focused exam: Vital signs reviewed as charted on intake. Gen: Well developed. No acute distress. CV: RRR, no M/R/G Chest: Non-labored breathing, CTAB. Psych: Alert and well-oriented. Mood/Affect: normal. Patient suitable for the planned procedure today: Yes === The following procedure was performed today: Lumbar Facet Joint Nerve Block (medial branch block) with fluoroscopic guidance ([id number]) Levels Treated: Bilateral L4-5 and L5-S1 facet joint nerves (bilateral L3 and L4 medial branches and L5 dorsal rami) Approach: posterior Soft tissue: 3 mL 2% lidocaine Injectate: 0.8 mL 2% lidocaine at each level Fluoroscopy Agent: Isovue 300-M 1.2 mL Notes: 3.5 in 22 gauge spinal needle utilized and adequate. Preprocedure pain 2/10, postprocedure pain 0/10. Pain diary was provided and she will bring it to follow-up. Procedure: After discussing the risks, benefits, and alternatives to the procedure, the patient expressed understanding and wished to proceed. The risks include but are not limited to infection, allergic reaction, nerve damage, stroke, paralysis, epidural hematoma, syncope, headache, respiratory or cardiac arrest, spinal cord injury, and scar formation. Informed consent was obtained and all patient questions were answered. The patient was brought to the procedure suite and placed in the prone position. A pre-procedural pause was conducted to verify: correct patient identity, procedure to be performed and as applicable, correct side and site, correct patient position, and any special requirements. Using fluoroscopy, the junction of the transverse process and superior articular process of the target levels were identified. For the L5 dorsal ramus (if targeted), the junction of the superior articular process of the sacrum and the ala was identified. The skin was sterilely prepped and draped in the usual fashion. The skin and subcutaneous tissue were anesthetized with lidocaine. Then using fluoroscopic guidance with multiplanar views, a 22 gauge spinal needle was advanced to each target. After contacting the periosteum and after negative aspiration, 0.2 cc of contrast was injected at each site. Spread of contrast approximated the region of the medial branches/dorsal ramus and there was no evidence of intravascular uptake. The injectate noted above was then injected at each site and the needles were removed. The procedure was repeated for each target level noted above. Multiplanar images were obtained and saved. The patient tolerated the procedure well and was discharged after an appropriate period of observation. If there are any complications, the patient was instructed to call us. The patient is to follow-up with the requesting provider in 1-2 weeks. The patient was instructed to keep a pain diary and bring the results to the follow up appointment. This note was compiled using voice recognition software and therefore may contain typos. Please contact the author with any questions or concerns.
== END 2025-08-17 10:01 | disposition home or self-care (01) ==
LOC: RAD 08:19
PROVIDERS: Family Provider Internal Medicine; PCP Physician Assistant Medical; Referring Provider Physician Assistant Medical; Visit Provider Physical Medicine & Rehabilitation
DX: M47.816 Spondylosis without myelopathy or radiculopathy, lumbar region (principal); M47.817 Spondylosis without myelopathy or radiculopathy, lumbosacral region
CPT/HCPCS: 64493; 64494